=== PATIENT | female | born 1930 | race Caucasian/White ===

== ENCOUNTER → 2017-03-04 | Outpatient (CLI) | payer OTHER, MEDICARE | LOC: FIMAGING 13:36 | PROVIDERS: ATTEND Internal Medicine | DX: Z12.31 Encounter for screening mammogram for malignant neoplasm of breast (principal); Z80.3 Family history of malignant neoplasm of breast | CPT/HCPCS: G0202 ==

== ENCOUNTER → 2017-03-29 | Outpatient (CLI) | payer OTHER, MEDICARE | LOC: FIMAGING 15:17 | PROVIDERS: ATTEND Internal Medicine | DX: R91.1 Solitary pulmonary nodule (principal); K44.9 Diaphragmatic hernia without obstruction or gangrene; I70.0 Atherosclerosis of aorta ==

== ENCOUNTER 2017-11-16 14:23 | Inpatient (IN) | payer OTHER, MEDICAID ==
[2017-11-16] MEDS ORDERED: FAMOTIDINE 20 MG/NACL 50 ML IV ONE (14:56)
[2017-11-16] MEDS ORDERED: ONDANSETRON 4 MG/2 ML VIAL IVP ONE (14:56)
[2017-11-16] MEDS ORDERED: NS 1,000 ML IV ONE (14:56)
--- NOTE | 2017-11-16 15:01 | EDPHY ---
H & P Stated Complaint: black stool/diarrhea Time Seen by Provider: 11/16/17 14:45 HPI/ROS: CHIEF COMPLAINT: GI bleed HISTORY OF PRESENT ILLNESS: The patient is an 87-year-old female with a history of peptic ulcer disease, lupus and coronary artery disease a currently on prednisone as well as Plavix who states that today she developed black tarry diarrhea. She has had 6 episodes. She feels slightly lightheaded and weak when she stands up. She denies pain or shortness of breath. Symptoms began this morning. No fever. No abdominal pain. No vomiting or nausea. REVIEW OF SYSTEMS: Constitutional: denies: chills, fever, recent illness, recent injury EENTM: denies: blurred vision, double vision, nose congestion Respiratory: denies: cough, shortness of breath Cardiac: denies: chest pain, irregular heart rate, lightheadedness, palpitations Gastrointestinal/Abdominal: See HPI Genitourinary: denies: dysuria, frequency, hematuria, pain Musculoskeletal: denies: joint pain, muscle pain Skin: denies: lesions, rash, jaundice, bruising Neurological: denies: headache, numbness, paresthesia, tingling, dizziness, weakness Hematologic/Lymphatic: denies: blood clots, easy bleeding, easy bruising Immunologic/allergic: denies: HIV/AIDS, transplant EXAM: GENERAL: Well-appearing, well-nourished and in no acute distress. HEAD: Atraumatic, normocephalic. EYES: Pupils equal round and reactive to light, extraocular movements intact, sclera anicteric, conjunctiva are normal. ENT: TMs normal, nares patent, oropharynx clear without exudates. Moist mucous membranes. NECK: Normal range of motion, supple without lymphadenopathy or JVD. LUNGS: Breath sounds clear to auscultation bilaterally and equal. No wheezes rales or rhonchi. HEART: Regular rate and rhythm without murmurs, rubs or gallops. ABDOMEN: Soft, nontender, normoactive bowel sounds. No guarding, no rebound. No masses appreciated. : External hemorrhoids, not bleeding, no stool in the rectal vault BACK: No CVA tenderness, no spinal tenderness, step-offs or deformities EXTREMITIES: Normal range of motion, no pitting or edema. No clubbing or cyanosis. NEUROLOGICAL: Cranial nerves II through XII grossly intact. Normal speech, normal gait. 5/5 strength, normal movement in all extremities, normal sensation PSYCH: Normal mood, normal affect. SKIN: Warm, dry, normal turgor, no visible rashes or lesions. Source: Patient Exam Limitations: No limitations - Personal History Current Tetanus/Diphtheria Vaccine: Yes - Medical/Surgical History Hx Asthma: Yes Hx Chronic Respiratory Disease: No Hx Diabetes: No Hx Cardiac Disease: Yes Hx Renal Disease: No Hx Cirrhosis: No Hx Alcoholism: No Hx HIV/AIDS: No Hx Splenectomy or Spleen Trauma: No Other PMH: medical Lupus, HTN, Mild Stroke (L sided wkns), Parathyroid lump, Pneumonia, Osteoporosis, Periphpral Neuripathy , Asthma Arthritis Celiac Disease , cataracts. psh- Partial Hysterectomy, Bladder, Heart Catherization, - Social History Smoking Status: Never smoked Constitutional: Initial Vital Signs Temperature (C) 36.9 C 11/16/17 14:32 Heart Rate 81 11/16/17 14:32 Respiratory Rate 19 11/16/17 14:32 Blood Pressure 156/90 H 11/16/17 14:32 O2 Sat (%) 94 11/16/17 14:32 O2 Delivery Mode Room Air Allergies/Adverse Reactions: aspirin Allergy (Severe, Verified 07/24/14 00:57) Anaphylaxis gabapentin Allergy (Severe, Unverified 11/16/17 17:53) facial + peripheral edema + swollen throat Penicillins Allergy (Severe, Verified 07/24/14 00:57) Anaphylaxis NSAIDS (Non-Steroidal Anti-Inflamma Allergy (Intermediate, Verified 11/16/17 17: 51) Abdominal Pain pregabalin [From Lyrica] Allergy (Intermediate, Unverified 11/16/17 17:53) edema furosemide [From Lasix] Allergy (Verified 11/16/17 17:52) Home Medications: Medication Instructions Recorded ALPRAZolam [Xanax 0.5 MG (*)] 0.5 mg PO BID@07/23/14 Clopidogrel Bisulfate [Plavix (*)] 75 mg PO DAILY@172907/23/14 Montelukast Sodium [Singulair 10 10 mg PO DAILY@1800 07/23/14 mg (*)] Tears/Hypromellose [Natural 1 - 2 drops EACHEYE QID PRN 07/23/14 Balance] traMADol [Ultram 50 mg (*)] 50 mg PO DAILY@1400 07/23/14 traMADol [Ultram 50 mg (*)] 100 mg PO BID 07/23/14 Loperamide HCl [Imodium 2 mg (*)] 8 mg PO DAILY 11/04/15 Multivitamins [Multivitamin (*)] 1 each PO DAILY 11/04/15 Temazepam [Restoril] 30 mg PO HS 11/04/15 predniSONE 5 mg PO DAILY 11/04/15 Acetaminophen [Tylenol ES 500 mg 1,000 mg PO TID 11/16/17 (*)] Calcium Carbonate [Calcium] 500 mg PO DAILY 11/16/17 Cholecalciferol Vit D3 [Vitamin D3 1,000 units PO DAILY 11/16/17 (*)] Potassium Chloride [Klor-Con 10] 10 meq PO TID 11/16/17 Ranitidine HCl [Zantac] 150 mg PO BID 11/16/17 Spironolactone [Aldactone 25 MG 25 mg PO BID@09,1730 11/16/17 (*)] Medical Decision Making ED Course/Re-evaluation: Patient has not been able to provide a stool sample. The rectal exam I performed had an empty vault and is Hemoccult negative. Her H&H is stable. She is however weak and lightheaded and difficult to assist. I suspect that she does have a degree of blood loss. I will paged the hospitalist for admission. She has white cells in her urine but denies dysuria or frequency. She states that she does have some urinary hesitancy but that is normal for her. I will culture her urine. 4:10 p.m. I discussed the case with Dr. Rankin who will admit. Differential Diagnosis: Partial list of the Differential diagnosis considered include but were not limited to; GI bleed, peptic ulcer disease, anemia, dehydration, urinary tract infection and although unlikely based on the history and physical exam, I also considered CVA, sepsis. - Data Points Laboratory Results: Laboratory Results 11/16/17 14:58 11/16/17 14:58 11/16/17 11/16/17 11/16/17 15:20 14:58 14:58 WBC RBC Hgb Hct MCV MCH MCHC RDW Plt Count MPV Neut % (Auto) Lymph % (Auto) [place] % (Auto) Eos % (Auto) Baso % (Auto) Nucleat RBC Rel Count Absolute Neuts (auto) Absolute Lymphs (auto) Absolute Monos (auto) Absolute Eos (auto) Absolute Basos (auto) Absolute Nucleated RBC Immature Gran % Immature Gran # PT INR APTT Sodium 144 mEq/L mEq/L (135-145) Potassium 4.9 mEq/L mEq/L (3.5-5.2) Chloride 103 mEq/L mEq/L (97-110) Carbon Dioxide 25 mEq/l mEq/l (22-31) Anion Gap 16 mEq/L mEq/L (8-16) BUN 14 mg/dL mg/dL (7-23) Creatinine 0.9 mg/dL mg/dL (0.6-1.0) Estimated GFR 59 Glucose 134 mg/dL H mg/dL (70-100) Calcium 10.5 mg/dL H mg/dL (8.5-10.4) Total Bilirubin 0.5 mg/dL mg/dL (0.1-1.4) Conjugated Bilirubin 0.4 mg/dL mg/dL (0.0-0.5) Unconjugated Bilirubin 0.1 mg/dL mg/dL (0.0-1.1) AST 39 IU/L IU/L (14-46) ALT 31 IU/L IU/L (9-52) Alkaline Phosphatase 60 IU/L IU/L (38-126) Total Protein 7.1 g/dL g/dL (6.3-8.2) Albumin 4.3 g/dL g/dL (3.5-5.0) Lipase 68 IU/L IU/L (23-300) Urine Color PALE YELLOW Urine Appearance CLEAR Urine pH 8.0 H (5.0-7.5) Ur Specific [place] 1.005 (1.002-1.030) Urine Protein NEGATIVE (NEGATIVE) Urine Ketones NEGATIVE (NEGATIVE) Urine Blood 1+ H (NEGATIVE) Urine Nitrate NEGATIVE (NEGATIVE) Urine Bilirubin NEGATIVE (NEGATIVE) Urine Urobilinogen NEGATIVE EU EU (0.2-1.0) Ur Leukocyte Esterase 2+ H (NEGATIVE) Urine RBC 1-3 /hpf /hpf (0-3) Urine WBC 5-10 /hpf H /hpf (0-3) Ur Epithelial Cells TRACE /lpf /lpf (NONE-1+) Urine Bacteria TRACE /hpf H /hpf (NONE SEEN) Urine Mucus TRACE /lpf /lpf (NONE-1+) Urine Glucose NEGATIVE (NEGATIVE) Stool Occult Bld Scrn NEGATIVE (NEGATIVE) 11/16/17 11/16/17 14:58 14:58 WBC 9.18 10^3/uL 10^3/uL (3.80-9.50) RBC 4.74 10^6/uL 10^6/uL (4.18-5.33) Hgb 14.7 g/dL g/dL (12.6-16.3) Hct 45.5 % % (38.0-47.0) MCV 96.0 fL fL (81.5-99.8) MCH 31.0 pg pg (27.9-34.1) MCHC 32.3 g/dL L g/dL (32.4-36.7) RDW 13.0 % % (11.5-15.2) Plt Count 163 10^3/uL 10^3/uL (150-400) MPV 11.3 fL fL (8.7-11.7) Neut % (Auto) 82.4 % H % (39.3-74.2) Lymph % (Auto) 11.1 % L % (15.0-45.0) [place] % (Auto) 5.6 % % (4.5-13.0) Eos % (Auto) 0.3 % L % (0.6-7.6) Baso % (Auto) 0.4 % % (0.3-1.7) Nucleat RBC Rel Count 0.0 % % (0.0-0.2) Absolute Neuts (auto) 7.56 10^3/uL H 10^3/uL (1.70-6.50) Absolute Lymphs (auto) 1.02 10^3/uL 10^3/uL (1.00-3.00) Absolute Monos (auto) 0.51 10^3/uL 10^3/uL (0.30-0.80) Absolute Eos (auto) 0.03 10^3/uL 10^3/uL (0.03-0.40) Absolute Basos (auto) 0.04 10^3/uL 10^3/uL (0.02-0.10) Absolute Nucleated RBC 0.00 10^3/uL 10^3/uL (0-0.01) Immature Gran % 0.2 % % (0.0-1.1) Immature Gran # 0.02 10^3/uL 10^3/uL (0.00-0.10) PT 12.9 SEC SEC (12.0-15.0) INR 0.95 (0.83-1.16) APTT 24.1 SEC SEC (23.0-38.0) Sodium Potassium Chloride Carbon Dioxide Anion Gap BUN Creatinine Estimated GFR Glucose Calcium Total Bilirubin Conjugated Bilirubin Unconjugated Bilirubin AST ALT Alkaline Phosphatase Total Protein Albumin Lipase Urine Color Urine Appearance Urine pH Ur Specific [place] Urine Protein Urine Ketones Urine Blood Urine Nitrate Urine Bilirubin Urine Urobilinogen Ur Leukocyte Esterase Urine RBC Urine WBC Ur Epithelial Cells Urine Bacteria Urine Mucus Urine Glucose Stool Occult Bld Scrn Medications Given: Acetaminophen (Tylenol) 1,000 mg PO TID MARK Stop: 05/15/18 21:59 Last Admin: 11/16/17 20:18 Dose: 1,000 mg Tramadol HCl (Ultram) 100 mg PO BID MARK Stop: 05/15/18 20:59 Last Admin: 11/16/17 20:15 Dose: 100 mg Discontinued Medications Famotidine (Pepcid) 20 mg PO BID MARK Stop: 05/15/18 20:59 Last Admin: 11/16/17 20:16 Dose: 20 mg Sodium Chloride (Ns) 1,000 mls @ 0 mls/hr IV EDNOW ONE; Wide Open PRN Reason: Protocol Stop: 11/16/17 14:57 Last Admin: 11/16/17 15:19 Dose: 1,000 mls Famotidine/Sodium Chloride (Pepcid 20 Mg (Premix)) 50 mls @ 200 mls/hr IV EDNOW ONE Stop: 11/16/17 15:10 Last Admin: 11/16/17 15:33 Dose: 50 mls Ondansetron HCl (Zofran) 4 mg IVP EDNOW ONE Stop: 11/16/17 14:57 Last Admin: 11/16/17 15:34 Dose: 4 mg Departure - Departure Disposition: [facility] Acute Clinical Impression: GI bleeding Qualifiers: GI bleed type/associated pathology: unspecified gastrointestinal hemorrhage type Qualified Code(s): K92.2 - Gastrointestinal hemorrhage, unspecified Condition: Fair
[2017-11-16 15:07] LABS: PLATELET COUNT 163 10^3/uL (150-400)
[2017-11-16 15:15] LABS: INR 0.95 (0.83-1.16); PROTIME(PATIENT) 12.9 SEC (12.0-15.0)
[2017-11-16] MEDS ORDERED: ACETAMINOPHEN 325 MG TAB PO PRN (16:51)
[2017-11-16] MEDS ORDERED: ONDANSETRON 4 MG/2 ML VIAL IVP PRN (16:51)
[2017-11-16 18:49] LABS: PLATELET COUNT 219 10^3/uL (150-400)
[2017-11-16] MEDS: traMADol 50 MG TAB PO SCH (20:15)
[2017-11-16] MEDS: ACETAMINOPHEN 500 MG TAB PO SCH (20:18)
[2017-11-16] MEDS ORDERED: FAMOTIDINE 20 MG TAB PO SCH (21:00)
[2017-11-16] MEDS ORDERED: NON-FORMULARY NEW DRUG (Ranitidine Hcl [Zantac] 150 MG) PO SCH (21:00)
[2017-11-16] MEDS ORDERED: TEMAZEPAM 15 MG CAP PO PRN (22:23)
[2017-11-17] MEDS: PANTOPRAZOLE SODIUM 40 MG VIAL IVP SCH ×2 (00:10→10:14)
[2017-11-17 00:41] LABS: PLATELET COUNT 179 10^3/uL (150-400)
--- NOTE | 2017-11-17 01:30 | PDGENHP ---
History and Physical - Chief Complaint Melena - History of Present Illness Source-patient is able to provide history and appears reliable. Her daughter is at bedside supplements some details. Case was discussed with accepting hospitalist. EMR was reviewed. HPI - this is a pleasant 87-year-old female with multiple chronic medical problems including SLE on plaquenil/steroids, CAD, CVA with left sided weakness , venous insufficiency, Barrest esophagus, IBS, celiac disease, peripheral neuropathy who presents to the ED today with complaints of multiple episodes 6 or more black tarry stools starting yesterday. Patient denies any abdominal pain, bloating or distention. Patient denies any chest pain or shortness of breath. She denies any nausea or vomiting. Patient has had decreased appetite until this evening when she tolerated oral intake. Patient without any previous history of GI bleeding by her report. She is currently on Plavix for history of CVA and CAD. Patient did endorse some generalized weakness and lightheadedness when she stood up to go to the bathroom. Patient reports at baseline she generally has difficulties with mobility but was increasingly difficult running back and forth to the bathroom the last 24 hr. Patient's last bowel movement at home she reports that it had changed to brown colored and more formed. Patient has not produced any stool since her arrival to the hospital. In the ED, rectal exam was not revealing for any stool in the vault and attempt at SOB was negative. Patient vital signs and H&H were found to be stable. Patient admitted for increasing weakness and monitoring in setting of suspected upper GI bleeding. Further discussion with the patient and her daughter who is at bedside regarding evaluation of her possible upper GI bleeding revealed that patient would not want to undergo endoscopy unless emergent to save her life. She does report that her advanced directive is to be DNR/DNI. History Information - Allergies/Home Medication List Allergies/Adverse Reactions: aspirin Allergy (Severe, Verified 07/24/14 00:57) Anaphylaxis gabapentin Allergy (Severe, Unverified 11/16/17 17:53) facial + peripheral edema + swollen throat Penicillins Allergy (Severe, Verified 07/24/14 00:57) Anaphylaxis NSAIDS (Non-Steroidal Anti-Inflamma Allergy (Intermediate, Verified 11/16/17 17: 51) Abdominal Pain pregabalin [From Lyrica] Allergy (Intermediate, Unverified 11/16/17 17:53) edema furosemide [From Lasix] Allergy (Verified 11/16/17 17:52) Home Medications: ALPRAZolam [Xanax 0.5 MG (*)] 0.5 mg PO BID@0 07/23/14 [Last Taken 09:00] Clopidogrel Bisulfate [Plavix (*)] 75 mg PO DAILY@1730 07/23/14 [Last Taken ] Montelukast Sodium [Singulair 10 mg (*)] 10 mg PO DAILY@1800 07/23/14 [Last Taken 11/15/17] Tears/Hypromellose [Natural Balance] 1 - 2 drops EACHEYE QID PRN 07/23/14 [Last Taken Unknown] traMADol [Ultram 50 mg (*)] 50 mg PO DAILY@1400 07/23/14 [Last Taken 11/16/17] traMADol [Ultram 50 mg (*)] 100 mg PO BID 07/23/14 [Last Taken 11/16/17 09:00] Loperamide HCl [Imodium 2 mg (*)] 8 mg PO DAILY 11/04/15 [Last Taken 11/16/17] Multivitamins [Multivitamin (*)] 1 each PO DAILY 11/04/15 [Last Taken 11/16/17] Temazepam [Restoril] 30 mg PO HS 11/04/15 [Last Taken 11/15/17] predniSONE 5 mg PO DAILY 11/04/15 [Last Taken 11/16/17] Acetaminophen [Tylenol ES 500 mg (*)] 1,000 mg PO TID 11/16/17 [Last Taken 11/16 13:00] Calcium Carbonate [Calcium] 500 mg PO DAILY 11/16/17 [Last Taken 11/16/17] Cholecalciferol Vit D3 [Vitamin D3 (*)] 1,000 units PO DAILY 11/16/17 [Last Taken 11/16/17] Potassium Chloride [Klor-Con 10] 10 meq PO TID 11/16/17 [Last Taken 11/16/17 12: 00] Ranitidine HCl [Zantac] 150 mg PO BID 11/16/17 [Last Taken 11/16/17 09:00] Spironolactone [Aldactone 25 MG (*)] 25 mg PO BID@11/16/17 [Last Taken 11/16/17 09:00] I have personally reviewed and updated: family history, medical history, social history, surgical history - Past Medical History Additional medical history: SLE, PUD, CAD on Plavix, CVA with left-sided residual weakness, HTN, asthma, nocturnal hypoxia on O2 supplementation at HS, Ruiz's esophagus, previous history of AFib noted in chart currently sinus, venous insufficiency bilaterally lower extremities. Essential tremor. Pneumonia remotely. Osteoporosis, osteoarthritis, peripheral neuropathy, celiac disease, IBS diarrhea predominant - Surgical History Additional surgical history: Hysterectomy, bladder lift, cardiac cath, bilateral cataract extraction with lens replacement, parathyroid nodule resected. - Family History Additional family history: Mother and maternal aunts x2 with history of breast cancer. Father with SLE. Brother with history of colon cancer. - Social History Smoking Status: Never smoked Alcohol Use: None Drug Use: None Additional social history: Patient resides at [facility]. Patient has excellent support from her children. Cor-DNR/DNI Review of Systems Review of Systems: ROS: 10pt was reviewed & negative except for what was stated in HPI & below Constitutional: Denies: chills, fever, weight loss EENMT: Denies: blurred vision, nose congestion, sore throat Cardiac: Reports: no symptoms, edema (Chronic bilateral lower extremity edema. Patient reports is stable.), lightheadedness. Denies: chest pain, palpitations , syncope Respiratory: Denies: cough, shortness of breath Gastrointestinal: Reports: black stools, diarrhea. Denies: vomitting, nausea Genitourinary: Reports: frequency (Ongoing for several weeks.). Denies: burning , dysuria, hematuria, incontinence Muscolosketal: Denies: joint pain, muscle pain Skin: Reports: no symptoms. Denies: rash Neurological: Reports: headache (Occasional), numbness (Lower extremities.), tremors, weakness (Lower extremity weakness chronically.), other (Chronic lower extremity neuropathy bilaterally.) Hematologic/Lymphatic: Reports: easy bruising. Denies: anemia, blood clots Physical Exam Physical Exam: Selected Entries 11/16/17 14:32 Blood Pressure Automatic Method Heart Rate 81 Respiratory 19 Rate O2 Sat (%) 94 Temperature (C) 36.9 C Blood Pressure 156/90 H Mean Arterial 112 H Pressure (MAP) O2 Delivery Room Air Mode Temperature Oral Source Temp Pulse Resp BP Pulse Ox 36.7 C 58 L 12 174/88 H 98 11/16/17 23:16 11/16/17 23:16 11/16/17 23:16 11/16/17 23:16 11/16/17 23:16 O2 (L/minute) 2 Constitutional: no apparent distress, not in pain, chronically ill appearing, other (NAD. Pleasant frail elderly obese female is lying quietly in bed. Daughter is at bedside.) Eyes: PERRL, anicteric sclera, EOMI, other (Bilateral lens reflex appreciated ) Ears, Nose, Mouth, Throat: moist mucous membranes, other (No nasal discharge), No poor dentition Cardiovascular: regular rate and rhythym, systolic murmur (2/6), edema ( Bilateral lower extremity 1 to 2+.) Peripheral Pulses: 1+: dorsalis-pedis (R) (Limited secondary to edema and complaint of pain from neuropathy), dorsalis-pedis (L) (Limited secondary to edema and complaint of pain from neuropathy) Respiratory: no respiratory distress, no rales or rhonchi, clear to auscultation , reduced air movement (bibasilar) Gastrointestinal: normoactive bowel sounds, soft, non-tender abdomen, no palpable masses, No tenderness, No pond's sign (0), No guarding, No distension Genitourinary: no bladder tenderness, No fierro in urethra Skin: warm, normal color, no rashes or abrasions Musculoskeletal: generalized weakness, other (Patient is able to move all extremities while lying in bed. Decreased.), No full muscle strength, No pain with ROM Neurologic: AAOx3, sensation intact bilaterally (Slightly decreased bilateral lower extremity), CN II-XII Intact, No facial droop Psychiatric: interacting appropriately, not anxious, not encephalopathic (0) Lab Data & Imaging Review 11/17/17 00:30 11/17/17 03:20 WBC 8.45 10^3/uL (3.80-9.50) 11/17/17 00:30 RBC 4.24 10^6/uL (4.18-5.33) 11/17/17 00:30 Hgb 13.3 g/dL (12.6-16.3) 11/17/17 00:30 Hct 41.2 % (38.0-47.0) 11/17/17 00:30 MCV 97.2 fL (81.5-99.8) 11/17/17 00:30 MCH 31.4 pg (27.9-34.1) 11/17/17 00:30 MCHC 32.3 g/dL (32.4-36.7) L 11/17/17 00:30 RDW 13.1 % (11.5-15.2) 11/17/17 00:30 Plt Count 179 10^3/uL (150-400) 11/17/17 00:30 MPV 11.3 fL (8.7-11.7) 11/17/17 00:30 Neut % (Auto) 73.3 % (39.3-74.2) 11/17/17 00:30 Lymph % (Auto) 15.4 % (15.0-45.0) 11/17/17 00:30 [place] % (Auto) 9.8 % (4.5-13.0) 11/17/17 00:30 Eos % (Auto) 0.9 % (0.6-7.6) 11/17/17 00:30 Baso % (Auto) 0.4 % (0.3-1.7) 11/17/17 00:30 Nucleat RBC Rel Count 0.0 % (0.0-0.2) 11/17/17 00:30 Absolute Neuts (auto) 6.19 10^3/uL (1.70-6.50) 11/17/17 00:30 Absolute Lymphs (auto) 1.30 10^3/uL (1.00-3.00) 11/17/17 00:30 Absolute Monos (auto) 0.83 10^3/uL (0.30-0.80) H 11/17/17 00:30 Absolute Eos (auto) 0.08 10^3/uL (0.03-0.40) 11/17/17 00:30 Absolute Basos (auto) 0.03 10^3/uL (0.02-0.10) 11/17/17 00:30 Absolute Nucleated RBC 0.00 10^3/uL (0-0.01) 11/17/17 00:30 Immature Gran % 0.2 % (0.0-1.1) 11/17/17 00:30 Immature Gran # 0.02 10^3/uL (0.00-0.10) 11/17/17 00:30 PT 12.9 SEC (12.0-15.0) 11/16/17 14:58 INR 0.95 (0.83-1.16) 11/16/17 14:58 APTT 24.1 SEC (23.0-38.0) 11/16/17 14:58 Sodium 144 mEq/L (135-145) 11/16/17 14:58 Potassium 4.9 mEq/L (3.5-5.2) 11/16/17 14:58 Chloride 103 mEq/L (97-110) 11/16/17 14:58 Carbon Dioxide 25 mEq/l (22-31) 11/16/17 14:58 Anion Gap 16 mEq/L (8-16) 11/16/17 14:58 BUN 14 mg/dL (7-23) 11/16/17 14:58 Creatinine 0.9 mg/dL (0.6-1.0) 11/16/17 14:58 Estimated GFR 59 11/16/17 14:58 Glucose 134 mg/dL (70-100) H 11/16/17 14:58 Calcium 10.5 mg/dL (8.5-10.4) H 11/16/17 14:58 Total Bilirubin 0.5 mg/dL (0.1-1.4) 11/16/17 14:58 Conjugated Bilirubin 0.4 mg/dL (0.0-0.5) 11/16/17 14:58 Unconjugated Bilirubin 0.1 mg/dL (0.0-1.1) 11/16/17 14:58 AST 39 IU/L (14-46) 11/16/17 14:58 ALT 31 IU/L (9-52) 11/16/17 14:58 Alkaline Phosphatase 60 IU/L (38-126) 11/16/17 14:58 Total Protein 7.1 g/dL (6.3-8.2) 11/16/17 14:58 Albumin 4.3 g/dL (3.5-5.0) 11/16/17 14:58 Lipase 68 IU/L (23-300) 11/16/17 14:58 Urine Color PALE YELLOW 11/16/17 15:20 Urine Appearance CLEAR 11/16/17 15:20 Urine pH 8.0 (5.0-7.5) H 11/16/17 15:20 Ur Specific [place] 1.005 (1.002-1.030) 11/16/17 15:20 Urine Protein NEGATIVE (NEGATIVE) 11/16/17 15:20 Urine Ketones NEGATIVE (NEGATIVE) 11/16/17 15:20 Urine Blood 1+ (NEGATIVE) H 11/16/17 15:20 Urine Nitrate NEGATIVE (NEGATIVE) 11/16/17 15:20 Urine Bilirubin NEGATIVE (NEGATIVE) 11/16/17 15:20 Urine Urobilinogen NEGATIVE EU (0.2-1.0) 11/16/17 15:20 Ur Leukocyte Esterase 2+ (NEGATIVE) H 11/16/17 15:20 Urine RBC 1-3 /hpf (0-3) 11/16/17 15:20 Urine WBC 5-10 /hpf (0-3) H 11/16/17 15:20 Ur Epithelial Cells TRACE /lpf (NONE-1+) 11/16/17 15:20 Urine Bacteria TRACE /hpf (NONE SEEN) H 11/16/17 15:20 Urine Mucus TRACE /lpf (NONE-1+) 11/16/17 15:20 Urine Glucose NEGATIVE (NEGATIVE) 11/16/17 15:20 Stool Occult Bld Scrn NEGATIVE (NEGATIVE) 11/16/17 14:58 Assessment & Plan Assessment: Melena - patient without any additional episodes of melena since arrival to the hospital. He she actually reports that the last bowel movement she had was brown. She has not had any nausea vomiting hematemesis. No persistent abdominal pain. Patient did at 1 point report a little bit of right mid abdominal tenderness but was bleeding and upon re-evaluation was gone. Per discussion with the patient I reviewed options for management including monitoring leads for further episodes of melena and/or decline in her H&H versus consideration for EGD. Given her age and her chronic medical issues patient would like to continue with conservative management and avoid intervention. She would however be interested in considering EGD if patient's symptoms began to decline or became life threatening. Will plan to hold patient 's Plavix at this time. Reviewed risks benefits of continued antiplatelet therapy with her history of GI bleeding and risks of recurrent CVA. Lightheadedness - patient has not had any further episodes will evaluate orthostatic blood pressures. Patient's resting blood pressure is acceptable at this time. We will continue some gentle IV fluid hydration overnight. Accelerated hypertension-hydralazine will be made available p.r.n.. Hyperglycemia-this is nonfasting. Patient without previous history of diabetes. She is chronically on low-dose prednisone for her lupus. Will allow for some permissive hyperglycemia in this elderly lady. Hold off on use of insulin correction as patient will remain NPO at this time. Hypercalcemia-minimally elevated likely related to some dehydration. Patient will receive IV fluid hydration and repeat BMP in the morning Urinary frequency-patient denies any dysuria or hematuria. She has reported some increased frequency she does have a history of lateral left may represent some on overactive bladder. Her UA was not significantly impressive for UTI. In that it was not a catheterized specimen and so was likely some component of contamination. Previous review of patient's UA from May did show a small colony grew growth of MRSA and mixed ilana. Hold off on antibiotic therapy at this time urine culture is pending. Chronic medical problems SLE-resume patient's prednisone and Plaquenil when diet is advanced. CAD-holding of Plavix History CVA with lower extremity weakness - holding Plavix Chronic nocturnal hypoxia supplemental oxygen p.r.n. Asthma - nebulizer p.r.n. Benign essential hypertension - plan as above Venous insufficiency - patient without any open wounds. Celiac disease IBS Osteoarthritis History of atrial fibrillation - in normal sinus rhythm. Not on any rate control. FEN - IV fluids overnight. Electrolyte monitoring replacement p.r.n.. NPO at this time. PPX - SCDs. Holding anticoagulation in setting of complaints of melena Cor-patient is a DNR DNI. Disposition-patient admitted to inpatient status for close monitoring of her vital signs and H&H. Further evaluation to consider with GI if patient elects to proceed with EGD.
[2017-11-17 04:48] LABS: INR 1.08 (0.83-1.16); PROTIME(PATIENT) 14.2 SEC (12.0-15.0)
[2017-11-17 08:48] LABS: PLATELET COUNT 165 10^3/uL (150-400)
[2017-11-17] MEDS ORDERED: predniSONE 5 MG TAB PO SCH (09:00)
[2017-11-17] MEDS ORDERED: ALPRAZolam 0.5 MG TAB PO SCH (09:00)
[2017-11-17] MEDS ORDERED: ALPRAZolam 0.25 MG TAB PO SCH (09:00)
[2017-11-17] MEDS ORDERED: SPIRONOLACTONE 25 MG TAB PO SCH (09:00)
--- NOTE | 2017-11-17 09:17 | PDMN ---
Medical Necessity Medical necessity: est los>2mn for melena with 6 or more episodes of black tarry stools, lightheadedness, accelerated htn, hyperglycemia, hypercalcemia, and urinary frequency; admit for continued conservative management and monitoring before proceeding with GI intervention per pt. preference, IVF, IV PPI; multiple comorbid conditions include SLE on chronic steroid, CAD on Plavix , hx CVA, HTN, IBS and celiac; per order and H&P 11/16/17
--- NOTE | 2017-11-17 10:03 | HOSPPROG ---
Hospitalist Progress Note Assessment/Plan: 87 yo f w lupus, h/o cva admitted w melena melena: s/o UGIB has stopped bun normal hg unchanged no hematemesis hold off on endoscopy lupus: continue pred h/o cva:plavix on hold code: dnr dispo: feed and ambulate if does ok, reasonable to dc Subjective: 30' spent disucssing potential endoscopy Objective: Vital Signs Temp Pulse Resp BP Pulse Ox 36.9 C 73 14 145/67 H 97 11/17/17 07:54 11/17/17 07:54 11/17/17 07:54 11/17/17 07:54 11/17/17 07:54 Laboratory Results 11/17/17 08:43 11/17/17 03:20 11/16/17 11/17/17 11/18/17 05:59 05:59 05:59 Output Total 100 300 Balance -100 -300 PT 14.2 SEC (12.0-15.0) 11/17/17 03:20 INR 1.08 (0.83-1.16) 11/17/17 03:20 - Physical Exam Constitutional: no apparent distress, appears nourished Eyes: PERRL, anicteric sclera Ears, Nose, Mouth, Throat: moist mucous membranes, hearing normal Cardiovascular: regular rate and rhythym, no murmur, rub, or gallop, No tachycardia Respiratory: no respiratory distress, no rales or rhonchi Gastrointestinal: normoactive bowel sounds, No guarding, No rebound Genitourinary: no bladder fullness Skin: warm Musculoskeletal: full muscle strength Neurologic: AAOx3 ICD10 Worksheet Patient Problems: Problems Problem Status Onset GI bleeding Acute Cervical pain (neck) Acute Fall Acute Hypokalemia Acute MRSA (methicillin resistant Staphylococcus aureus) Acute ~06/16/17
[2017-11-17] MEDS ORDERED: NON-FORMULARY NEW DRUG (Tears/Hypromellose [Natural Balance] 0 DROPS) EACHEYE PRN (10:12)
[2017-11-17] MEDS: ACETAMINOPHEN 500 MG TAB PO SCH ×2 (10:13→15:41)
[2017-11-17] MEDS: traMADol 50 MG TAB PO SCH (10:13)
[2017-11-17] MEDS ORDERED: CHOLECALCIFEROL VIT D3 1,000 UNITS TAB PO SCH (10:15)
[2017-11-17] MEDS ORDERED: LOPERAMIDE HCL 2 MG CAP PO SCH (10:15)
[2017-11-17] MEDS ORDERED: MULTIVITAMINS 1 EACH TAB PO SCH (10:15)
[2017-11-17] MEDS ORDERED: CALCIUM CARBONATE 500 MG PO SCH (10:15)
[2017-11-17] MEDS ORDERED: TEARS/DEXTRAN 70/HYPROMELLOSE 15 ML OPHT.BTL EACHEYE PRN (10:16)
[2017-11-17] MEDS ORDERED: CALCIUM CARBONATE 500 MG TAB PO SCH (10:30)
[2017-11-17] MEDS ORDERED: traMADol 50 MG TAB PO SCH (14:00)
--- NOTE | 2017-11-17 14:59 | ASMTCASEMG ---
Living Arrangements What is your living Answers: Alone arrangement? Who do you live with? Type Of Residence What kind of residence do Answers: [facility]? Type of Residence Facility Name Notes: [facility] Discharge Plan Comments Coordination Status Comments Notes: Pts case discussed in morning rounds. Pt is a 87 y/o female admitted for a upper GI bleed. Therapies have been ordered. PT and OT are recommending HC at this time. Pt is agreeable to having HC through [facility]. [facility] is able to accept. Daughter would like to be the salesperson fashion accessories for [facility] to call. provided this info to [facility]. provided ERIC Morgan w/ phone number to give report. CM available for changes. Plan: [facility], [place], RN Date Signed: 11/17/2017 02:59 PM Electronically Signed By:ANNE MARIE Thibodeaux
--- NOTE | 2017-11-17 15:00 | ASMTLACE ---
LACE Length of stay for Answers: 1 day current admission Acuity / Level of Answers: Yes Care: Did the patient have an inpatient admission? Comorbidities - select Answers: Cerebrovascular disease all that apply (CVA, TIA, aneurysms, vasc ular dementia) Coronary Atery Disease # of Emergency department Answers: 0 visits in the last 6 months Score: 7 Date Signed: 11/17/2017 02:59 PM Electronically Signed By:ANNE MARIE Thibodeaux
--- NOTE | 2017-11-17 15:40 | GDS ---
[f rep st] DISCHARGE SUMMARY DISCHARGE DIAGNOSES: 1. Suspected upper gastrointestinal bleed without blood-loss anemia. 2. Lupus, on prednisone 5. 3. History of transient ischemic attack, history of cerebrovascular accident. HOSPITAL COURSE: Please see admission history and physical by Dr. Theresa Stern. The patient present ed with a couple days of melena. She had a normal BUN. Her hemoglobin was 14 and it remained above 14 in serial checking. She had no further melena. Her last stool prior to presentation was brown. Her Plavix was held. She was started on a b.i.d. PPI. There was significant discussion about the ri sks, benefits of endoscopy which she ultimately declined given the absence of significant blood loss. She is discharged home. She is going to hold her Plavix for a couple of days. I have substituted b.i.d. Protonix x1 month for her ranitidine, and when she is done with that 1-month therapy, she can resume her ranitidine. /[id number]/MODL
--- NOTE | 2017-11-17 15:56 | PDIAF ---
- Diagnosis Diagnosis: UGIB Code Status: Do Not Resuscitate - Medication Management Discharge Medications: Medications to Continue on Transfer ALPRAZolam [Xanax 0.5 MG (*)] 0.5 mg PO BID@09,1730 07/23/14 [Last Taken 09:00] Clopidogrel Bisulfate [Plavix (*)] 75 mg PO DAILY@1730 07/23/14 [Last Taken ] Montelukast Sodium [Singulair 10 mg (*)] 10 mg PO DAILY@1800 07/23/14 [Last Taken 11/15/17] Tears/Hypromellose [Natural Balance] 1 - 2 drops EACHEYE QID PRN 07/23/14 [Last Taken Unknown] traMADol [Ultram 50 mg (*)] 50 mg PO DAILY@1400 07/23/14 [Last Taken 11/16/17] traMADol [Ultram 50 mg (*)] 100 mg PO BID 07/23/14 [Last Taken 11/16/17 09:00] Loperamide HCl [Imodium 2 mg (*)] 8 mg PO DAILY 11/04/15 [Last Taken 11/16/17] Multivitamins [Multivitamin (*)] 1 each PO DAILY 11/04/15 [Last Taken 11/16/17] Temazepam [Restoril] 30 mg PO HS 11/04/15 [Last Taken 11/15/17] predniSONE 5 mg PO DAILY 11/04/15 [Last Taken 11/16/17] Acetaminophen [Tylenol ES 500 mg (*)] 1,000 mg PO TID 11/16/17 [Last Taken 11/16 13:00] Calcium Carbonate [Calcium] 500 mg PO DAILY 11/16/17 [Last Taken 11/16/17] Cholecalciferol Vit D3 [Vitamin D3 (*)] 1,000 units PO DAILY 11/16/17 [Last Taken 11/16/17] Potassium Chloride [Klor-Con 10] 10 meq PO TID 11/16/17 [Last Taken 11/16/17 12: 00] Spironolactone [Aldactone 25 MG (*)] 25 mg PO BID@,1730 11/16/17 [Last Taken 11/16/17 09:00] Pantoprazole Sodium [Protonix 40mg (*)] 40 mg PO BID #60 tab 11/17/17 [Last Taken Unknown] Discharge Medications: Refer to the Discharge Home Medication list for PRN reason. - Orders Services needed: Registered Nurse, Physical Therapy, Occupational Therapy - Follow Up Care Current Providers and Referrals: Clint Auguste MD [Primary Care Provider] - As per Instructions
[2017-11-17] MEDS ORDERED: POTASSIUM CL 10 MEQ TAB PO SCH (16:00)
[2017-11-17] MEDS ORDERED: NON-FORMULARY NEW DRUG (Potassium Chloride [Klor-Con 10] 10 MEQ) PO SCH (16:00)
[2017-11-17 16:18] VITALS: PULSE 82; RESP 16; TEMP 98.2; O2SAT 95
[2017-11-17 16:42] VITALS: BP 150/80
[2017-11-17] MEDS ORDERED: MONTELUKAST SODIUM 10 MG TAB PO SCH (18:00)
[2017-11-17] MEDS ORDERED: PANTOPRAZOLE SODIUM 40 MG TAB PO SCH (21:00)
== END 2017-11-17 17:29 | disposition home health service (06) | DRG 378 ==
LOC: OBSVTOIN 16:52 → F2W 18:09
PROVIDERS: ADMIT Internal Medicine; ATTEND Internal Medicine
DX: K92.2 Gastrointestinal hemorrhage, unspecified (principal); D62 Acute posthemorrhagic anemia; M32.9 Systemic lupus erythematosus, unspecified; I10 Essential (primary) hypertension; Z86.73 Personal history of transient ischemic attack (TIA), and cerebral infarction without residual deficits; Z66 Do not resuscitate
CPT/HCPCS: 96365; 97161-GP; 97165-GO; 97535-GO; G8978-GP-CJ; G8979-GP-CI; G8980-GP-CJ; G8987-GO-CI; G8988-GO-CI; J2405; J7512

== ENCOUNTER 2018-03-04 08:02 | Inpatient (IN) | payer OTHER, MEDICAID ==
--- NOTE | 2018-03-04 08:25 | CPEKG ---
Heart Rate: 107 RR Interval: 561 P-R Interval: 164 QRSD Interval: 132 QT Interval: 420 QTC Interval: 561 P [place]: 0 QRS [place]: 51 T Wave [place]: -9 EKG Severity - ABNORMAL ECG - EKG Impression: significant artifact, ?junctional rhythm EKG Impression: RIGHT BUNDLE BRANCH BLOCK Electronically Signed By: Naatlie Saenz 04-Mar-2018 15:21:27
[2018-03-04 08:59] LABS: PLATELET COUNT 165 10^3/uL (150-400)
--- NOTE | 2018-03-04 09:52 | EDPHY ---
H & P Stated Complaint: syncopal Time Seen by Provider: 03/04/18 08:09 HPI/ROS: CHIEF COMPLAINT: Syncope HISTORY OF PRESENT ILLNESS: 87-year-old female presents after syncopal episode. She was sitting on the toilet and the next thing she recalls is being on the floor next to the toilet. She does not recall being dizzy and was not short of breath. She has mild left-sided hip pain after the syncopal episode. No prior history of syncope. No recent illness. REVIEW OF SYSTEMS: complete 10 point ROS negative except at noted in the HPI - Medical/Surgical History Hx Asthma: Yes Hx Chronic Respiratory Disease: No Hx Diabetes: No Hx Cardiac Disease: Yes Hx Renal Disease: No Hx Cirrhosis: No Hx Alcoholism: No Hx HIV/AIDS: No Hx Splenectomy or Spleen Trauma: No Other PMH: medical Lupus, HTN, Mild Stroke (L sided wkns), Parathyroid lump, Pneumonia, Osteoporosis, Periphpral Neuripathy , Asthma Arthritis Celiac Disease , cataracts. psh- Partial Hysterectomy, Bladder, Heart Catherization, - Social History Smoking Status: Never smoked - Physical Exam Exam: General Appearance: Alert, pleasant Eyes: Pupils equal and round, no conjunctival pallor or injection ENT, Mouth: Mucous membranes moist Neck: Normal inspection Respiratory: Lungs are clear to auscultation Cardiovascular: Regular rate and rhythm Gastrointestinal: Abdomen is soft and nontender Neurological: A&O, left-sided weakness Skin: Warm and dry, no rash Extremities: Left hip-normal inspection, mild tenderness laterally, range of motion without pain Psychiatric: Mood and affect normal Constitutional: Initial Vital Signs Temperature (C) 37.0 C 03/04/18 08:08 Heart Rate 63 03/04/18 08:08 Respiratory Rate 2 L 03/04/18 08:08 Blood Pressure 171/83 H 03/04/18 08:08 O2 Sat (%) 99 03/04/18 08:08 O2 Delivery Mode Nasal Cannula O2 (L/minute) 3 Allergies/Adverse Reactions: aspirin Allergy (Severe, Verified 07/24/14 00:57) Anaphylaxis gabapentin Allergy (Severe, Verified 03/04/18 11:46) facial + peripheral edema + swollen throat Penicillins Allergy (Severe, Verified 07/24/14 00:57) Anaphylaxis furosemide Allergy (Unknown, Verified 03/04/18 11:46) NSAIDS (Non-Steroidal Anti-Inflamma [NSAIDS (Non-Steroidal Anti-Inflammatory Drug)] Allergy (Unknown, Verified 03/04/18 11:46) Abdominal Pain pregabalin Allergy (Unknown, Verified 03/04/18 11:46) edema Home Medications: Medication Instructions Recorded ALPRAZolam [Xanax 0.5 MG (*)] 0.5 mg PO BID@,172907/23/14 Clopidogrel Bisulfate [Plavix (*)] 75 mg PO DAILY@17307/23/14 Montelukast Sodium [Singulair 10 10 mg PO DAILY@1800 07/23/14 mg (*)] Tears/Hypromellose [Natural 1 - 2 drops EACHEYE QID PRN 07/23/14 Balance] traMADol [Ultram 50 mg (*)] 50 mg PO DAILY@12 07/23/14 traMADol [Ultram 50 mg (*)] 100 mg PO BID@1730,0 07/23/14 Loperamide HCl [Imodium 2 mg (*)] 8 mg PO DAILY 11/04/15 Multivitamins [Multivitamin (*)] 1 each PO DAILY 11/04/15 Temazepam [Restoril] 30 mg PO HS 11/04/15 predniSONE 5 mg PO DAILY 11/04/15 Acetaminophen [Tylenol ES 500 mg 1,000 mg PO DAILY PRN 11/16/17 (*)] Calcium Carbonate [Calcium] 500 mg PO DAILY 11/16/17 Cholecalciferol Vit D3 [Vitamin D3 1,000 units PO DAILY 11/16/17 (*)] Potassium Chloride [Klor-Con 10] 10 meq PO TID 11/16/17 Spironolactone [Aldactone 25 MG 25 mg PO BID@11/16/17 (*)] Pantoprazole Sodium [Protonix 40mg 40 mg PO BID #60 tab 11/17/17 (*)] Topiramate [Topamax] 100 mg PO HS 03/04/18 Medical Decision Making - Diagnostics EKG Interpretation: EKG interpreted by me reveals significant artifact, probable sinus tachycardia, right bundle branch block ED Course/Re-evaluation: This patient presents after a syncopal episode without prodromal symptoms. There is no evidence of significant injury on exam. Initial EKG has significant artifact. Repeat EKG reveals a junctional rhythm. I reviewed her prior EKGs and she is usually in NSR. The syncopal episode may have been secondary to dysrhythmia. Electrolytes and hemoglobin are normal. She will be admitted to the hospitalist service for further evaluation. She is asymptomatic throughout her emergency department stay. Differential Diagnosis: Differential diagnosis includes though is not limited to cardiac dysrhythmia, CVA, TIA, GI bleed, sepsis, hypoglycemia. - Data Points Laboratory Results: Laboratory Results 03/04/18 08:44 03/04/18 08:44 03/04/18 03/04/18 03/04/18 08:47 08:44 08:44 WBC RBC Hgb Hct MCV MCH MCHC RDW Plt Count MPV Neut % (Auto) Lymph % (Auto) [place] % (Auto) Eos % (Auto) Baso % (Auto) Nucleat RBC Rel Count Absolute Neuts (auto) Absolute Lymphs (auto) Absolute Monos (auto) Absolute Eos (auto) Absolute Basos (auto) Absolute Nucleated RBC Immature Gran % Immature Gran # Sodium 143 mEq/L mEq/L (135-145) Potassium 3.8 mEq/L mEq/L (3.3-5.0) Chloride 105 mEq/L mEq/L (97-110) Carbon Dioxide 31 mEq/l mEq/l (22-31) Anion Gap 7 mEq/L L mEq/L (8-16) BUN 14 mg/dL mg/dL (7-23) Creatinine 1.1 mg/dL H mg/dL (0.6-1.0) Estimated GFR 47 Glucose 81 mg/dL mg/dL (70-100) Calcium 8.9 mg/dL mg/dL (8.5-10.4) POC Troponin I 0.02 ng/mL ng/mL (0.00-0.08) NT-Pro-B Natriuret Pep 1090 pg/mL H pg/mL (0-450) 03/04/18 08:44 WBC 6.61 10^3/uL 10^3/uL (3.80-9.50) RBC 4.08 10^6/uL L 10^6/uL (4.18-5.33) Hgb 12.4 g/dL L g/dL (12.6-16.3) Hct 40.0 % % (38.0-47.0) MCV 98.0 fL fL (81.5-99.8) MCH 30.4 pg pg (27.9-34.1) MCHC 31.0 g/dL L g/dL (32.4-36.7) RDW 13.8 % % (11.5-15.2) Plt Count 165 10^3/uL 10^3/uL (150-400) MPV 11.8 fL H fL (8.7-11.7) Neut % (Auto) 57.4 % % (39.3-74.2) Lymph % (Auto) 28.3 % % (15.0-45.0) [place] % (Auto) 10.3 % % (4.5-13.0) Eos % (Auto) 3.0 % % (0.6-7.6) Baso % (Auto) 0.8 % % (0.3-1.7) Nucleat RBC Rel Count 0.0 % % (0.0-0.2) Absolute Neuts (auto) 3.80 10^3/uL 10^3/uL (1.70-6.50) Absolute Lymphs (auto) 1.87 10^3/uL 10^3/uL (1.00-3.00) Absolute Monos (auto) 0.68 10^3/uL 10^3/uL (0.30-0.80) Absolute Eos (auto) 0.20 10^3/uL 10^3/uL (0.03-0.40) Absolute Basos (auto) 0.05 10^3/uL 10^3/uL (0.02-0.10) Absolute Nucleated RBC 0.00 10^3/uL 10^3/uL (0-0.01) Immature Gran % 0.2 % % (0.0-1.1) Immature Gran # 0.01 10^3/uL 10^3/uL (0.00-0.10) Sodium Potassium Chloride Carbon Dioxide Anion Gap BUN Creatinine Estimated GFR Glucose Calcium POC Troponin I NT-Pro-B Natriuret Pep Medications Given: Prednisone (Prednisone) 5 mg PO DAILY [facility] Stop: 08/31/18 12:14 Last Admin: 03/04/18 14:03 Dose: 5 mg Tramadol HCl (Ultram) 50 mg PO DAILY@12 MARK Stop: 08/31/18 13:59 Last Admin: 03/04/18 14:03 Dose: 50 mg Point of Care Test Results: Chemistry 03/04/18 08:47 POC Troponin I 0.02 ng/mL ng/mL (0.00-0.08) Departure - Departure Disposition: [facility] Inpatient Acute Clinical Impression: Junctional bradycardia Syncope Qualifiers: Syncope type: vasovagal syncope Qualified Code(s): R55 - Syncope and collapse Condition: Good
[2018-03-04] MEDS ORDERED: ACETAMINOPHEN 500 MG TAB PO PRN (12:10)
--- NOTE | 2018-03-04 12:43 | CPEKG ---
Heart Rate: 59 RR Interval: 1017 P-R Interval: 176 QRSD Interval: 130 QT Interval: 448 QTC Interval: 444 P [place]: -55 QRS [place]: 37 T Wave [place]: -15 EKG Severity - ABNORMAL ECG - EKG Impression: SINUS OR ECTOPIC ATRIAL RHYTHM EKG Impression: RIGHT BUNDLE BRANCH BLOCK Electronically Signed By: Natalie Saenz 04-Mar-2018 15:20:23
[2018-03-04] MEDS ORDERED: TEARS/DEXTRAN 70/HYPROMELLOSE 15 ML OPHT.BTL EACHEYE PRN (13:18)
[2018-03-04] MEDS: traMADol 50 MG TAB PO SCH ×3 (14:03→22:20)
[2018-03-04] MEDS: predniSONE 5 MG TAB PO SCH (14:03)
[2018-03-04] MEDS ORDERED: ACETAMINOPHEN 325 MG TAB PO PRN (14:13)
[2018-03-04] MEDS ORDERED: ONDANSETRON 4 MG/2 ML VIAL IVP PRN (14:13)
[2018-03-04] MEDS ORDERED: ONDANSETRON DISINTEGRATING 4 MG TAB PO PRN (14:13)
--- NOTE | 2018-03-04 15:51 | GHP ---
[f rep st] HISTORY AND PHYSICAL DATE OF ADMISSION: 03/04/2018 CHIEF COMPLAINT: Syncopal event. HISTORY OF PRESENT ILLNESS: The patient is an 87-year-old female with a past medical history of CVA, hypertension, peripheral neuropathy, and essential tremor, who presented to the emergency room after having a syncopal event. She was sitting on the toilet, and the next thing she recalled is she was on the floor next to the toilet. She did not have any chest pain. She was not lightheaded. She says she has bars by the bathroom that help her. She has no recollection except sitting down on the toilet seat and then was on the ground. This occurred at 7 in the morning. She felt that she did not bear down. She has been eating fine. Her weight has probably slightly increased. She has chronic lower extremity swelling that has worsened over the last week or so. She has no fever, no chills. During my interview, she is feeling fine. PAST MEDICAL HISTORY: 1. Systemic lupus erythematosus, on prednisone. 2. Essential tremors. 3. CVA in 2003. 4. Celiac disease. 5. History of atrial fibrillation. 6. Peripheral neuropathy. 7. Arthritis. 8. Hypertension. 9. Asthma. 10. Gait instability. 11. Venous insufficiency. 12. Right bundle branch block, which was noted back in 2013. PAST SURGICAL HISTORY: 1. Partial hysterectomy. 2. Bladder surgery. 3. Parathyroid nodule removal. 4. Heart catheterization, 2000. SOCIAL HISTORY: She lives at [facility]. She has been since June 2016. 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 She has 4 children. She does not smoke. She does not drink alcohol. FAMILY HISTORY: Her mom at age 90 from heart disease. Her father of complications at age 53 from lupus. ALLERGIES: Aspirin, NSAIDs, penicillin, Lyrica, and gabapentin. REVIEW OF SYSTEMS: A 10-point review was performed, was negative other than the pertinent positives in the HPI and past medical history. HOME MEDICATIONS: Topamax 100 mg p.o. q.h.s., tramadol 50 mg daily at 12, tramadol 100 mg b.i.d. at 1730 and 2230, prednisone 5 mg daily, Restoril 30 mg p.o. q.h.s., Natural Balance 1-2 drops q.i.d. p.r.n., Aldactone 25 mg p.o. b.i.d., Klor-Con 10 mEq p.o. t.i.d., Protonix 40 mg daily, multivitamin 1 tab daily, Singulair 10 mg daily, Imodium 8 mg p.o. daily, Plavix 75 mg daily, vitamin D3 1000 units daily, calcium 500 mg daily, Tylenol Extra Strength 1000 mg daily p.r.n., and Xanax 0.5 mg p.o. b.i.d. PHYSICAL EXAM: GENERAL: The patient is an 87-year-old female who appears to be her stated years. VITAL SIGNS: Blood pressure is 162/71, heart rate of 54, respiratory rate of 16. O2 sats on 3 L are 97%. Temperature is 36.4 Celsius. HEENT: Eyes: Pupils are equal and reactive. EOMs are intact. No conjunctival injection noted. ENT: Normal ears. She is hard of hearing and wears a hearing aid. Her airway is moist. NECK: Trachea is midline. CARDIOVASCULAR: She is in a regular rate and rhythm. No murmurs, rubs, or gallops noted. CHEST: Lungs, normal respiratory effort, without wheezing, rales, or rhonchi. ABDOMEN: Soft, nontender. SKIN: She has ecchymosis to the left lower gluteus area. Otherwise, warm, dry, and intact. MUSCULOSKELETAL : She says she is able to ambulate well. PSYCHIATRIC: She is alert and oriented. Normal mood and affect. Normal judgment. Normal insight and memory. LABORATORY DATA: Chemistry panel shows a sodium of 143, potassium 3.8, chloride of 105, BUN of 14, creatinine of 1.1, glucose of 81. Troponin 0.02. CBC shows a white blood cell count of 6.61, hemoglobin 12.4, hematocrit 40, platelet count of 165. An EKG was performed in the emergency room, which showed a sinus rhythm with a right bundle branch. I reviewed the potline monitor. She has been at times in sinus rhythm and at times in a junctional rhythm. I reviewed her care with Dr. Carolin Saenz, emergency room physician. ASSESSMENT/PLAN: 1. Syncopal event. This was an unclear etiology, except that it could be related to an intermittent junctional rhythm. She also takes Xanax b.i.d., as well as a sleeping pill, which may have affected her. Will get an echocardiogram. Will monitor on the telemetry floor and see if she continues to go in and out of junctional rhythm. If she has this ongoing and has lightheadedness, she could possibly need a pacemaker. Spoken with cardiology and they will see her. 2. Abnormal EKG, noting that she has some junctional rhythm. Will get a repeat EKG in the morning. 3. Renal insufficiency. Creatinine is slightly elevated compared to her baseline. Will hold her diuretic for now and resume if this improves. 4. Significant lower extremity swelling. She says this is much worse than her baseline. Will check a BNP for further evaluation. Will also evaluate her echocardiogram. 5. Lupus erythematosus. Resume prednisone. 6. Peripheral neuropathy. She takes tramadol for this. 7. Hypertension. Will continue monitoring. 8. History of cerebrovascular accident. Plavix. 9. Deep venous thrombosis prophylaxis, high risk. Will initiate knee-high DOROTHY hose, as well as athrombic pumps and low-molecular weight heparin. 10. Length of stay: She will likely require less than a 2-midnight stay for further evaluation. This can be further evaluated in the morning. 11. Code status: Do not resuscitate. /[id number]/MODL MTDD
--- NOTE | 2018-03-04 16:01 | CPEKG ---
Heart Rate: 52 RR Interval: 1154 QRSD Interval: 138 QT Interval: 452 QTC Interval: 421 QRS [place]: 40 T Wave [place]: -4 EKG Severity - ABNORMAL ECG - EKG Impression: ACCELERATED JUNCTIONAL ESCAPE RHYTHM EKG Impression: RIGHT BUNDLE BRANCH BLOCK Electronically Signed By: Mervin Harrison 06-Mar-2018 07:38:00
--- NOTE | 2018-03-04 16:50 | ECHO ---
[email or web address] [address] Main: [phone] Fax: Transthoracic Echocardiogram Name: ESTRELLA MACARIO MR#: [id number] Study Date: 03/04/2018 Study Time: 02:38 PM Date of : 1930 Age: 87 year(s) Height: 154.9 cm (61 in.) Weight: 72.58 kg (160 lb.) BSA: 1.72 m2 Gender: Female Examination: Echo Indication: Syncope/leg swelling Image Quality: Contrast: Requested by: Maci Winston BP: 162 mmHg/71 mmHg Heart Rate: Rhythm: Indication: Syncope/leg swelling Procedure Staff Screw Remover: Dionne Baker RDCS Reading Physician: Cherie Delgado MD Requesting Provider: Conclusions: Normal size left ventricle. No LV hypertrophy. Normal global systolic LV function. The ejection fraction is estimated to be 65-70 %. No regional wall motion abnormality. Mildly dilated right ventricle. Normal RV function. The left atrium is mildly dilated. Moderate mitral valve regurgitation is present. Mild tricuspid regurgitation is present. There is no previous echocardiogram for comparison. Measurements: Chambers Valvular Assessment AV/MV Valvular Assessment TV/PV Normal Normal Normal Name Value Range Name Value Range Name Value Range Ao Charlene (MM): 3.1 cm (2.2 cm-3.7 AV Vmax: 1.82 m/s (1 m/s-1.7 TR Vmax: 2.89 mm/s ( - ) cm) m/s) TR PGmax: 33 mmHg ( - ) IVSd (2D): 1.0 cm (0.6 cm-1.1 AV meanP mmHg ( - ) syst. PAP: 38 mmHg ( - ) cm) HARRIET (VTI): 1.4 cm ( - ) LVDd (2D): 4.4 cm (3.9 cm-5.3 MV meanP mmHg ( - ) cm) MVA (Vmax): 1.5 m/s ( - ) LVDs (2D): 2.4 cm (2.1 cm-4 cm) LVPWd (2D): 0.7 cm ( - ) LVOTd 1.8 cm 1.8 cm mm LVEF (MOD4): 74 % (>=55 %) EF Range: 65-70 % Continued Measurements: Patient: ESTRELLA MACARIO Study Date: 03/04/2018 Page 1 of 2 02:38 PM Chambers Valvular Assessment AV/MV Valvular Assessment TV/PV Name Value Name Value Name Value LADs: 4.2 cm MV Annulus: 3.0 cm CVP (est.): 5 mmHg LADs Lon.4 cm MV VTI: 42.60 cm LA Area: 24.1 cm2 MR Vena Contracta: 0.3 cm MR ERO: 0.170 cm2 MR PISA radius: 6 mm MR Reg. Volume: 29 ml MR Reg. Fraction: 10 % Findings: Left Ventricle: Normal size left ventricle. No LV hypertrophy. Normal global systolic LV function. The ejection fraction is estimated to be 65-70 %. No regional wall motion abnormality. Right Ventricle: Mildly dilated right ventricle. Normal RV function. Left Atrium: The left atrium is mildly dilated. Right Atrium: The right atrium is mildly dilated. Mitral Valve: Mild mitral annular calcification. Moderate mitral valve regurgitation is present. Aortic Valve: Mild aortic cusp calcification is noted. There is no aortic valve regurgitation. Tricuspid Valve: The tricuspid valve is normal in appearance and function. Mild tricuspid regurgitation is present. The pulmonary artery pressure is normal. Pulmonic Valve: The pulmonic valve is normal in appearance and function. Trivial pulmonic valve regurgitation. Aorta: The aorta is normal. Pericardium: No pericardial effusion. There is pericardial fat. (No Signature Object) Patient: ESTRELLA MACARIO Study Date: 03/04/2018 Page 2 of 2 02:38 PM [id number]
[2018-03-04] MEDS ORDERED: hydrALAZINE 10 MG TAB PO PRN (17:04)
[2018-03-04] MEDS: MONTELUKAST SODIUM 10 MG TAB PO SCH (17:09)
[2018-03-04] MEDS: CLOPIDOGREL BISULFATE 75 MG TAB PO SCH (17:09)
--- NOTE | 2018-03-04 18:21 | GCON ---
[f rep st] CONSULTATION CARDIAC CONSULTATION DATE OF CONSULTATION: 03/04/2018 CHIEF COMPLAINT: Syncope. HISTORY OF PRESENT ILLNESS: The patient is an 87-year-old female with a history of hypertension, lupus, and celiac disease, who presented to the hospital with syncope. This morning she woke up feeling fine and walked to the toilet. While sitting on the toilet, she had a probable syncopal event. She recalls falling, but does not remember if she hit the floor. She did bruise her left hip and shoulder. On admission to the hospital, she has had intermittent junctional rhythm at a rate of 50 to 60 beats per minute. Her initial troponin is negative. She has noted that she has been more fatigued than usual, but denies any lightheadedness or dizziness. She has also been more diaphoretic and noted increased lower extremity edema over the last month. She currently lives at [facility] and participates in exercise classes 2 times a week. She denies any exertional chest discomfort or dyspnea on exertion. PAST MEDICAL HISTORY: Hypertension, reflux, celiac disease, lupus, neuropathy. FAMILY HISTORY: Negative for coronary artery disease. SOCIAL HISTORY: She currently resides at [facility]. She denies any history of tobacco use. She is accompanied by her daughter. HOME MEDICATIONS: Plavix 75 mg daily, Singulair 10 mg daily, tramadol 100 mg b.i.d., Xanax 0.5 mg twice daily, multivitamin daily, Restoril 30 mg at bedtime , prednisone 5 mg daily, Imodium 8 mg daily, Tylenol p.r.n., vitamin D3, calcium , potassium 10 mEq t.i.d., spironolactone 25 mg b.i.d., Protonix 40 mg b.i.d., Topamax 100 mg at bedtime. ALLERGIES: She is allergic to aspirin and NSAIDs, which cause anaphylactic reaction. She is also allergic to penicillin, gabapentin, and Lyrica. REVIEW OF SYSTEMS: A 10-point review of systems is negative except for what is stated in the H and P. PHYSICAL EXAMINATION: VITAL SIGNS: Blood pressure 162/71, heart rate 54, oxygen saturation 97% on 3 L, afebrile. EYES: Pupils are equal. NECK: No carotid bruits or JVD present. LUNGS: Clear to auscultation. No wheezes, rhonchi, or crackles auscultated. CARDIAC: Regular rate and rhythm without any significant murmurs, rubs, or gallops appreciated. ABDOMEN: Soft, nontender, nondistended. EXTREMITIES: Palpable pulses with mild edema bilaterally and evidence of venous stasis. NEUROLOGIC: Nonfocal. PSYCHIATRIC : Mood and affect appropriate. SKIN: No obvious rashes or ecchymosis identified. LABORATORY: Troponin negative x1. BNP 1090. Sodium 143, potassium 3.8, chloride 105, bicarb 31, BUN 14, creatinine 1.1. Calcium 8.9. DIAGNOSTIC STUDIES: EKG shows junctional rhythm at a rate of 60 with a right bundle branch block. She has been monitored on telemetry and is having intermittent junctional rhythm at a rate of 50 to 60 beats per minute, interpreted by me. Her echocardiogram showed preserved LV function without any wall motion abnormalities. She has moderate mitral regurgitation. ASSESSMENT: The patient is an 87-year-old female who presents with a probable syncopal event with intermittent junctional rhythm seen on telemetry. PLAN: The patient had a probable syncopal event this morning. She has been monitored on telemetry and is having intermittent junctional rhythm at a rate of 50 to 60 beats per minute. She denies any prior presyncopal or syncopal events. An echocardiogram showed preserved LV function without any significant wall motion abnormalities and her initial troponin is negative. The patient will continue to be monitored on telemetry and she will be kept n.p.o. for probable pacemaker in the morning. She is allergic to penicillin and therefore , vancomycin would be used for antibiotic therapy prior to and post procedure. She should remain on her current hypertensive therapy. She will be kept n.p.o. after midnight in anticipation for a possible pacemaker. /[id number]/MODL MTDD
[2018-03-04] MEDS ORDERED: PANTOPRAZOLE SODIUM 40 MG TAB PO SCH (21:00)
[2018-03-04] MEDS: TOPIRAMATE 100 MG TAB PO SCH (22:22)
[2018-03-04] MEDS: TEMAZEPAM 15 MG CAP PO SCH (22:22)
[2018-03-05] MEDS ORDERED: PANTOPRAZOLE SODIUM 40 MG TAB PO SCH (09:00)
[2018-03-05] MEDS: predniSONE 5 MG TAB PO SCH (09:02)
[2018-03-05] MEDS: MULTIVITAMINS 1 EACH TAB PO SCH (09:02)
[2018-03-05] MEDS: CALCIUM CARBONATE 500 MG TAB PO SCH (09:02)
[2018-03-05] MEDS: PANTOPRAZOLE SODIUM 40 MG TAB PO SCH (09:03)
[2018-03-05] MEDS: CHOLECALCIFEROL VIT D3 1,000 UNITS TAB PO SCH (09:03)
[2018-03-05] MEDS: ENOXAPARIN 30 MG/0.3 ML SYR SC SCH (09:03)
--- NOTE | 2018-03-05 09:44 | SOAPPROG ---
SOAP Progress Note Assessment/Plan: Assessment/Plan: This is a 87 yr old female with past history of CVA, who comes with an episode of fall/ syncope. Pt is unclear whether she passed out. She has not had episodes before. SHe was on the toilet when this happened. She denies confusion, nausea, diaphoresis immediately after the event. However, she does have increased diaphoresis for the past month or so. Pt had what appears to be accelerated junctional rhythm suppressing sinus rhythm during admission with rates in the 50s and 60s. Overnight, she did not have significant drop in the HR. There are no pauses. At current point in time, the etiology of the episode is not clear. will keep her overnight on telemonitor. Will observe for any pauses, bradycardia, heart block. If none observed, recommend loop recorder implant for syncope of unknown etiology Pt and the family explained this and they are agreeable to it. 03/05/18 09:41 Subjective: pt is feeling fine. She is able to describe the event in detail. No further weakness. No presyncope. No lightheadedness. Objective: Vital Signs Temp Pulse Resp BP Pulse Ox 36.6 C 68 18 138/75 H 98 03/05/18 08:00 03/05/18 08:00 03/05/18 08:00 03/05/18 08:00 03/05/18 08:00 Laboratory Results 03/05/18 04:25 03/04/18 03/05/18 03/06/18 05:59 05:59 05:59 Intake Total 600 Output Total 1550 Balance -950 Physical Exam - Physical Exam General Appearance: alert, no apparent distress EENT: PERRL/EOMI, normal ENT inspection Neck: non-tender, full range of motion, supple Respiratory: lungs clear Cardiac/Chest: regular rate, rhythm, No edema, No gallop Abdomen: non-tender, soft, No organomegaly Skin: warm/dry ICD10 Worksheet Patient Problems: Problems Problem Status Onset Junctional bradycardia Acute Syncope Acute Cervical pain (neck) Acute Fall Acute GI bleeding Acute Hypokalemia Acute MRSA (methicillin resistant Staphylococcus aureus) Acute ~06/16/17
[2018-03-05] MEDS ORDERED: traMADol 50 MG TAB PO SCH (12:00)
[2018-03-05] MEDS: traMADol 50 MG TAB PO SCH ×3 (12:07→22:38)
--- NOTE | 2018-03-05 15:17 | HOSPPROG ---
Hospitalist Progress Note Assessment/Plan: 87 yo F with hx of CVA, HTN presenting s/p syncope # syncope: at this time etiology is unclear, initially concerning for cardiac syncope, appreciate cardiology consultation. Noted to have accelerated junctional rhythm as well as occasional bradycardia as possible etiology, plan to monitor overnight on telemetry. Echo reviewed with moderate MR, normal EF. No plan for PPM at this point. # minesh: held diuretic overnight, improved, will resume aldactone # LLE swelling: chronic, per patient may be worse than her baseline, echo as above, likely partially related to chronic prednisone use # SlE: continue prednisone # hx of CVA: no significant residual sxs # p a fib: with current junctional rhythm as above, no rate controlling meds # essential tremor, peripheral neuropathy--chronic # IP status, royal need at least 48 hours for eval and mgmt of abnormal heart rhythm Patient new to my care. Old records reviewed and summarized as above. Care plan reviewed with cardiology Subjective: no significnat overnight events, paitent noted abnormal heart beat while walking Objective: Vital Signs Temp Pulse Resp BP Pulse Ox 36.8 C 65 18 131/67 H 98 03/05/18 12:00 03/05/18 12:00 03/05/18 12:00 03/05/18 12:00 03/05/18 12:00 Laboratory Results 03/05/18 04:25 03/04/18 03/05/18 03/06/18 05:59 05:59 05:59 Intake Total 600 Output Total 1550 Balance -950 awake alert elderly anicteric op clear rrr systolic murmur cta b soft nt nd ble edema warm dry well perfused oriented appropriate ICD10 Worksheet Patient Problems: Problems Problem Status Onset GI bleeding Acute Syncope Acute Junctional bradycardia Acute MRSA (methicillin resistant Staphylococcus aureus) Acute ~06/16/17 Hypokalemia Acute Cervical pain (neck) Acute Fall Acute
--- NOTE | 2018-03-05 16:00 | ASMTCMCOM ---
CM Note CM Note Notes: Pt admitted following a fall/syncopal event. Pt normally resides at [facility]. Has had [facility] in the past. PT recommending home with [facility] Outpatient Therapy. OT ordered; awaiting eval. CM will follow. Dc poc-TBD Date Signed: 03/05/2018 03:59 PM Electronically Signed By:Mar Hsu RN
--- NOTE | 2018-03-05 17:52 | PDMN ---
Medical Necessity Medical necessity: C/M review: est. > 2 MN LOS for eval and TX of acute syncope of unclear etiology, initially concerning for cardiac syncope, patient was noted to have accelerated junctional rhythm and occasional bradycardia as possible etiology, acute kidney, requiring Cardiology consult, ongoing cardiac monitoring, acute inpt PT/OT, comorbid chronic left lower extremity swelling per 03/05/2018 Hospitalist progress note.
[2018-03-05] MEDS: CLOPIDOGREL BISULFATE 75 MG TAB PO SCH (18:25)
[2018-03-05] MEDS: MONTELUKAST SODIUM 10 MG TAB PO SCH (18:26)
[2018-03-05] MEDS: TEMAZEPAM 15 MG CAP PO SCH (22:38)
[2018-03-05] MEDS: TOPIRAMATE 100 MG TAB PO SCH (22:39)
[2018-03-06] MEDS ORDERED: ALPRAZolam 0.5 MG TAB PO SCH (09:00)
[2018-03-06] MEDS ORDERED: SPIRONOLACTONE 25 MG TAB PO SCH (09:00)
[2018-03-06] MEDS: MULTIVITAMINS 1 EACH TAB PO SCH (09:46)
[2018-03-06] MEDS: CHOLECALCIFEROL VIT D3 1,000 UNITS TAB PO SCH (09:46)
[2018-03-06] MEDS: PANTOPRAZOLE SODIUM 40 MG TAB PO SCH (09:46)
[2018-03-06] MEDS: CALCIUM CARBONATE 500 MG TAB PO SCH (09:46)
[2018-03-06] MEDS: predniSONE 5 MG TAB PO SCH (09:46)
--- NOTE | 2018-03-06 10:36 | PDDCSUM ---
Discharge Summary Discharge Summary: Dates of service 03/04-03/06/18 Consultations: cardiology Procedures performed: echocardiogram, LINQ placement Hospital course by problem: 87 yo F with hx of CVA, HTN presenting s/p syncope # syncope: etiology likely vagal, occurred while on the toilet, w/u here reassuring including echo and telemetry monitoring, cardiology placing LINQ prior to dc # minesh: held diuretic overnight, improved, resumed aldactone # LLE swelling: chronic, per patient may be worse than her baseline, echo as above, likely partially related to chronic prednisone use # SlE: continue prednisone # hx of CVA: no significant residual sxs # p a fib: with current junctional rhythm as above, no rate controlling meds # essential tremor, peripheral neuropathy--chronic DC home f/u with cardiology and PCP Items for f/u: LINQ monitoring > 35 min spent in dc of patient more than half in coordination of care
[2018-03-06] MEDS: ENOXAPARIN 30 MG/0.3 ML SYR SC SCH (11:25)
[2018-03-06] MEDS: traMADol 50 MG TAB PO SCH (11:51)
[2018-03-06 12:26] VITALS: BP 115/58
--- NOTE | 2018-03-06 12:54 | ASMTCMCOM ---
CM Note CM Note Notes: Dc order received. Spoke with PT; pt will be staying with her daughter, Starla, before returning to [facility]. Met with pt & Starla to discuss HHC vs Outpatient Therapy. Pt states she is only staying at her daughter's house for a day or two; informed "[facility] needs to reevaluate [facility]". At this time, pt does not feel like she would benefit from HHC & would like to resume Otpt therapy once home. Pt instructed to call her PCP to obtain a HHC order if she ends up staying at her daughter's house longer than anticipated. No other nees at this time. Dc poc- Home with daughter then [facility] w/Otpt therapy Date Signed: 03/06/2018 12:53 PM Electronically Signed By:Mar Hsu RN
--- NOTE | 2018-03-06 12:55 | ASDISCHSUM ---
Discharge Information Plan Status:Assisted Living Medically Cleared to Leave: Discharge Date: D/C Disposition:Assisted Living ADT D/C Disposition:Home, Routine, Self-Care Projected Discharge Date:03/06/2018 01:00 PM Transportation at D/C:Family Discharge Delay Reason: Follow-Up Date:03/06/2018 01:00 PM Discharge Slot: Final Diagnosis: Placement Information Referral Type:Assisted Living Residence Referral ID:[id number] Provider Name:Johan Mann mariah Address 1:[address] Phone Number: Address 2:[place] Fax Number: [facility]:[place] Selection Factors: State:[place] Patient Contact Information Contact Name:ANTONIO Relationship:Daughter Address: Work Phone: [facility] Phone: [facility] Code:[place] [address] Email: Financial Information Financial Class:Medicare Primary Plan Desc:MEDICARE OUTPATIENT Primary Plan Number:[id number] Secondary Plan Desc:MEDICAID HEALTH [employer] [place] Secondary Plan Number:[id number] Assessment Information [facility] CM Progress Note CM Note CM Note Notes: Pt admitted following a fall/syncopal event. Pt normally resides at [facility]. Has had [facility] in the past. PT recommending home with [facility] Outpatient Therapy. OT ordered; awaiting eval. CM will follow. Dc poc-TBD Date Signed: 03/05/2018 03:59 PM Electronically Signed By:Mar Hsu RN [facility] CM Progress Note CM Note CM Note Notes: Dc order received. Spoke with PT; pt will be staying with her daughter, Starla, before returning to [facility] [place]. Met with pt & Starla to discuss HHC vs [facility] Outpatient Therapy. Pt states she is only staying at her daughter's house for a day or two; informed "[facility] at needs to reevaluate pt before returning to [place]". At this time, pt does not feel like she would benefit from HHC & would like to resume Otpt therapy once home. Pt instructed to call her PCP to obtain a HHC order if she ends up staying at her daughter's house longer than anticipated. No other nees at this time. Dc poc- Home with daughter [facility] w/Otpt therapy Date Signed: 03/06/2018 12:53 PM Electronically Signed By:Mar Hsu RN Intervention Information Intervention Type:*SAL-Signed Date of Service:03/04/2018 02:45 PM Patient Type:Observation Staff Member:Aggie Rea Hours: Discipline: Severity: Comment:
--- NOTE | 2018-03-06 17:52 | EPPROC ---
Electrophysiology Procedure Note: Procedure: LINQ implant Indication: Syncope of unknown etiology Procedure: Parts prepared and draped. LA given. Incision placed. Using usual technique,LINQ was implanted. Wisdom placed. Dry sterile dressing placed. Conclusion: Successful LINQ implant Patient Problems: Problems Problem Status Onset Cervical pain (neck) Acute Fall Acute GI bleeding Acute Hypokalemia Acute Junctional bradycardia Acute MRSA (methicillin resistant Staphylococcus aureus) Acute ~06/16/17 Syncope Acute
== END 2018-03-06 15:00 | disposition home or self-care (01) | DRG 259 ==
LOC: EDUNIT# → F2W 12:58 → OBSVTOIN 03-05 13:19
PROVIDERS: ADMIT Internal Medicine; ATTEND Internal Medicine
PROC: 0JH60PZ Insertion of Cardiac Rhythm Related Device into Chest Subcutaneous Tissue and Fascia, Open Approach (ICD-10-PCS; principal; 2018-03-06)
DX: R55 Syncope and collapse (principal); N17.9 Acute kidney failure, unspecified; I10 Essential (primary) hypertension; I48.0 Paroxysmal atrial fibrillation; M79.89 Other specified soft tissue disorders; M32.9 Systemic lupus erythematosus, unspecified; G25.0 Essential tremor; G62.9 Polyneuropathy, unspecified; W18.11XA Fall from or off toilet without subsequent striking against object, initial encounter; Z86.73 Personal history of transient ischemic attack (TIA), and cerebral infarction without residual deficits; Z66 Do not resuscitate
CPT/HCPCS: 84484-PO; 97116-GP; 97161-GP; 97165-GO; 97535-GO; G0378; G8978-GP-CJ; G8979-GP-CI; G8987-GO-CI; G8988-GO-CI; J1650; J7512

== ENCOUNTER 2018-06-08 18:51 | Emergency (ER) | payer OTHER, MEDICAID ==
--- NOTE | 2018-06-08 19:08 | EDPHY ---
H & P Stated Complaint: fall skin tears Time Seen by Provider: 06/08/18 19:07 - Personal History Current Tetanus Diphtheria and Acellular Pertussis (TDAP): Yes - Medical/Surgical History Hx Asthma: Yes Hx Chronic Respiratory Disease: No Hx Diabetes: No Hx Cardiac Disease: Yes Hx Renal Disease: No Hx Cirrhosis: No Hx Alcoholism: No Hx HIV/AIDS: No Hx Splenectomy or Spleen Trauma: No Other PMH: medical Lupus, HTN, Mild Stroke (L sided wkns), Parathyroid lump, Pneumonia, Osteoporosis, Periphpral Neuripathy , Asthma Arthritis Celiac Disease , cataracts. psh- Partial Hysterectomy, Bladder, Heart Catherization, - Social History Smoking Status: Never smoked Constitutional: Initial Vital Signs Temperature (C) 36.5 C 06/08/18 19:03 Heart Rate 72 06/08/18 19:03 Respiratory Rate 16 06/08/18 19:03 Blood Pressure 211/97 H 06/08/18 19:03 O2 Sat (%) 100 06/08/18 19:03 O2 Delivery Mode Nasal Cannula O2 (L/minute) 3 Allergies/Adverse Reactions: aspirin Allergy (Severe, Verified 06/08/18 19:03) Anaphylaxis gabapentin Allergy (Severe, Verified 06/08/18 19:03) facial + peripheral edema + swollen throat Penicillins Allergy (Severe, Verified 06/08/18 19:03) Anaphylaxis furosemide Allergy (Unknown, Verified 06/08/18 19:03) NSAIDS (Non-Steroidal Anti-Inflamma [NSAIDS (Non-Steroidal Anti-Inflammatory Drug)] Allergy (Unknown, Verified 06/08/18 19:03) Abdominal Pain pregabalin Allergy (Unknown, Verified 06/08/18 19:03) edema Home Medications: Medication Instructions Recorded ALPRAZolam [Xanax 0.5 MG (*)] 0.5 mg PO BID@07/23/14 Clopidogrel Bisulfate [Plavix (*)] 75 mg PO DAILY@172907/23/14 Montelukast Sodium [Singulair 10 10 mg PO DAILY@1800 07/23/14 mg (*)] Tears/Hypromellose [Natural 1 - 2 drops EACHEYE QID PRN 07/23/14 Balance] traMADol [Ultram 50 mg (*)] 50 mg PO DAILY@12 07/23/14 traMADol [Ultram 50 mg (*)] 100 mg PO BID@1730,2230 07/23/14 Loperamide HCl [Imodium 2 mg (*)] 8 mg PO DAILY 11/04/15 Multivitamins [Multivitamin (*)] 1 each PO DAILY 11/04/15 Temazepam [Restoril] 30 mg PO HS 11/04/15 predniSONE 5 mg PO DAILY 11/04/15 Acetaminophen [Tylenol ES 500 mg 1,000 mg PO DAILY PRN 11/16/17 (*)] Calcium Carbonate [Calcium] 500 mg PO DAILY 11/16/17 Cholecalciferol Vit D3 [Vitamin D3 1,000 units PO DAILY 11/16/17 (*)] Potassium Chloride [Klor-Con 10] 10 meq PO TID 11/16/17 Spironolactone [Aldactone 25 MG 25 mg PO BID@09,1730 11/16/17 (*)] Topiramate [Topamax] 100 mg PO HS 03/04/18 Pantoprazole Sodium [Protonix 40mg 40 mg PO DAILY 03/05/18 (*)] Medical Decision Making ED Course/Re-evaluation: CHIEF COMPLAINT: Fall HISTORY OF PRESENT ILLNESS: This patient is an anticoagulated (Plavix) 88 year old female with history of CVA who presents following a mechanical fall. She was walking with her walker and hit a door frame on her right side as she went outside, and this caused her to fall onto her tailbone. She denies any significant pain in her coccyx or sacrum and was able to ambulate follwoing the event. She did not strike her head or lose consciousness. Her primary complaint is two skin tears to her right upper extremity which bled profusely since she is anticoagulated. She denies any other trauma and has no further complaints. No chest pain, shortness of breath, lightheadedness, headache, or other associated symptoms either currently or before her fall. REVIEW OF SYSTEMS: A comprehensive 10 system review of systems is otherwise negative aside from elements mentioned in the history of present illness and medical decision making. PHYSICAL EXAM: HR, BP, O2 Sat, RR. Temp noted General Appearance: Alert, well hydrated, appropriate, and non-toxic appearing. Head: Atraumatic without scalp tenderness or obvious injury Eyes: Pupils equal, round, reactive to light and accommodation, EOMI, no trauma , no injection. Ears: Clear bilaterally, no perforation, normal landmarks Nose: Atraumatic, no rhinorrhea, clear. Throat: There is no erythema or exudates, no lesions, normal tonsils, mucus membranes moist. Neck: Supple, 2+ carotid upstroke, nontender, no lymphadenopathy. Respiratory: No retractions, no distress, no wheezes, and no accessory muscle use. Lungs are clear to auscultation bilaterally. Cardiovascular: Regular rate and rhythm, no murmurs, rubs, or gallops. Bilateral carotid, radial, dorsalis pedis, and posterior tibial pulses intact. Good capillary refill all extremities. Gastrointestinal: Abdomen is soft, nontender, non-distended, no masses, no rebound, no guarding, no peritoneal signs. Musculoskeletal: Normal active ROM of all extremities. Neurological: Alert, appropriate, and interactive. Nonfocal exam at baseline for patient. Skin: Two skin tears to the right forearm. No rashes, good turgor, no nodules on palpation. Past medical history: History of CVA with mild resultant deficits. Hypertension. Lupus. Osteoporosis. Peripheral neuropathy. Asthma. Celiac disease. Arthritis. Past surgical history: Cardiac catheterization. Partial hysterectomy. Family history: Noncontributory. Social history: Family at bedside. Lives in [place]. Retired. DIFFERENTIAL DIAGNOSIS: The differential diagnosis for the patient's trauma included but was not limited to intracranial injury, long bone and pelvic bone fractures, spinal injury, intra-abdominal injury, and intra-thoracic injury. MEDICAL DECISION [id number] y/o female presents with two skin tears to her right upper extremity following a mechanical fall. No further trauma. Plan to clean and dress the skin tears under standard ED protocol. Patient is comfortable returning home following this. Plan to discharge home in good condition. Follow up and return precautions discussed. She will see her primary care provider for followup. She is comfortable with this plan. Departure - Departure Disposition: Home, Routine, Self-Care Clinical Impression: Skin tear of right upper extremity Condition: Good Instructions: Skin Tear (ED) Additional Instructions: 1. Follow up with your primary care provider. 2. Return to the emergency department for persistent bleeding or if you develop fever, redness, discharge from wound, increasing pain or other worsening of condition. Referrals: Clint Auguste MD [Primary Care Provider] - As per Instructions Report Scribed for: Daniel Ramos Report Scribed by: Noreen Brink Date of Report: 06/08/18 Time of Report: 19:16
[2018-06-08 19:48] VITALS: BP 157/77
== END 2018-06-08 19:46 | disposition home or self-care (01) ==
DX: S51.801A Unspecified open wound of right forearm, initial encounter (principal); Z66 Do not resuscitate; W19.XXXA Unspecified fall, initial encounter; Y92.9 Unspecified place or not applicable; Y99.9 Unspecified external cause status; Y93.9 Activity, unspecified

== ENCOUNTER 2018-06-20 12:08 | Inpatient (IN) | payer OTHER, MEDICAID ==
--- NOTE | 2018-06-20 12:40 | EDPHY ---
H & P Time Seen by Provider: 06/20/18 12:40 HPI/ROS: CHIEF COMPLAINT: Right hip pain, found on the floor HISTORY OF PRESENT ILLNESS: Daughter was called by Johan Lowe this morning, the patient says she fell out of bed this morning and landed on her left hip, could not get up. She has had nausea vomiting and diarrhea all night. She feels very thirsty. Right hip pain does not radiate, not really worse with movement. Not associated with weakness or numbness in the left leg. No head injury or neck pain and no weakness or numbness in extremities. No hematemesis or coffee-ground emesis or melena. She feels severely weak which is general and not focal. REVIEW OF SYSTEMS: Eye: no change in vision ENT: no sore throat Cardiac: no chest pain or syncope Pulmonary: no cough or SOB Abdomen: HPI, had abdominal pain at the time of onset of the vomiting and diarrhea but not really now. Musculoskeletal: No neck or back pain, as left hip and left arm pain Skin: 2 areas of abrasion on the right arm which are healing from a previous fall, bruising on the left upper arm. Neuro: no headache Constitutional: no fever : no urinary symptoms A comprehensive 10 point review of systems is otherwise negative aside from elements mentioned in the history of present illness. PAST MEDICAL HISTORY: Includes lupus, hypertension, chronic left-sided weakness after stroke. Peripheral neuropathy asthma, arthritis, partial hysterectomy. Social history: [facility] resident, here with her daughter General Appearance: Alert and conversant, cooperative. Eyes: No scleral icterus. ENT, Mouth: Dry mucous membranes Respiratory: Normal respiratory effort, breath sounds equal, lungs are clear to auscultation. Cardiovascular: Regular rate and rhythm. Gastrointestinal: Abdomen is soft and non tender. No rebound or guarding. Neurological: Alert, face symmetric, normal motor and sensory in extremities. She knows her age, where she is, which month it is. Speech is fluent and she can move all 4 extremities. Skin: 2 dressings on the right upper arm without surrounding erythema or lymphangitis, bruising on the left upper arm. Chronic venous stasis changes both anterior shins. Musculoskeletal: No hip pain on left or right with axial loading or rotation. Some tenderness to palpation over the lateral aspect of the left hip. No spinal tenderness. Some midline left arm tenderness. Psychiatric: Not agitated. Emergency Department course/MDM: Patient arrives febrile 38.3 with heart rate of 79 and blood pressure 140/77. Plan to check chest x-ray and urinalysis, screening labs including lactate. IV fluid bolus, x-rays of the left arm and left hip. IV normal saline. Clinically dehydrated, will require admission. 1353: Chest humerus and hip x-rays negative, urinalysis pending. 1428: Discussed with [facility] med/surg. 1449: Results discussed with the family, they said that she might have hit her head, is on Plavix, noncontrast head CT. Imaging negative per Dr. Maza, CT head. Patient does not have clinical evidence of acute surgical abdominal process. More likely acute gastrointestinal process giving her fever nausea vomiting diarrhea and dehydration. Smoking Status: Never smoked Constitutional: Initial Vital Signs Temperature (C) 38.3 C 06/20/18 12:13 Heart Rate 79 06/20/18 12:13 Respiratory Rate 16 06/20/18 12:13 Blood Pressure 140/77 H 06/20/18 12:13 O2 Sat (%) 94 06/20/18 12:13 O2 Delivery Mode Nasal Cannula O2 (L/minute) 3 Allergies/Adverse Reactions: aspirin Allergy (Severe, Verified 06/08/18 19:03) Anaphylaxis gabapentin Allergy (Severe, Verified 06/08/18 19:03) facial + peripheral edema + swollen throat Penicillins Allergy (Severe, Verified 06/08/18 19:03) Anaphylaxis furosemide Allergy (Unknown, Verified 06/08/18 19:03) NSAIDS (Non-Steroidal Anti-Inflamma [NSAIDS (Non-Steroidal Anti-Inflammatory Drug)] Allergy (Unknown, Verified 06/08/18 19:03) Abdominal Pain pregabalin Allergy (Unknown, Verified 06/08/18 19:03) edema Home Medications: Medication Instructions Recorded ALPRAZolam [Xanax 0.5 MG (*)] 0.5 mg PO BID@07/23/14 Clopidogrel Bisulfate [Plavix (*)] 75 mg PO DAILY@172907/23/14 Montelukast Sodium [Singulair 10 10 mg PO DAILY@1800 07/23/14 mg (*)] Tears/Hypromellose [Natural 1 - 2 drops EACHEYE QID PRN 07/23/14 Balance] traMADol [Ultram 50 mg (*)] 50 mg PO DAILY@12 07/23/14 traMADol [Ultram 50 mg (*)] 100 mg PO BID@1730,2230 07/23/14 Loperamide HCl [Imodium 2 mg (*)] 8 mg PO DAILY 11/04/15 Multivitamins [Multivitamin (*)] 1 each PO DAILY 11/04/15 Temazepam [Restoril] 30 mg PO HS 11/04/15 predniSONE 5 mg PO DAILY 11/04/15 Acetaminophen [Tylenol ES 500 mg 1,000 mg PO DAILY PRN 11/16/17 (*)] Calcium Carbonate [Calcium] 500 mg PO DAILY 11/16/17 Cholecalciferol Vit D3 [Vitamin D3 1,000 units PO DAILY 11/16/17 (*)] Potassium Chloride [Klor-Con 10] 10 meq PO TID 11/16/17 Spironolactone [Aldactone 25 MG 25 mg PO BID@09,1730 11/16/17 (*)] Topiramate [Topamax] 125 mg PO HS 03/04/18 Pantoprazole Sodium [Protonix 40mg 40 mg PO DAILY 03/05/18 (*)] Medical Decision Making - Diagnostics Imaging Results: Imaging Impressions Hip X-Ray 06/20/18 12:55 Impression: Nothing acute identified. Humerus X-Ray 06/20/18 12:55 Impression: Nothing acute identified. Chest X-Ray 06/20/18 12:56 Impression: Bronchitis and left basilar atelectasis. No effusion. Imaging: I viewed and interpreted images myself Differential Diagnosis: Differential for hip injury considered including but not limited to contusion, hip dislocation, hip fracture, pelvic fracture. - Data Points Laboratory Results: Laboratory Results 06/20/18 12:00 06/20/18 12:00 06/20/18 06/20/18 06/20/18 14:01 12:45 12:00 WBC RBC Hgb Hct MCV MCH MCHC RDW Plt Count MPV Neut % (Auto) Lymph % (Auto) [place] % (Auto) Eos % (Auto) Baso % (Auto) Nucleat RBC Rel Count Absolute Neuts (auto) Absolute Lymphs (auto) Absolute Monos (auto) Absolute Eos (auto) Absolute Basos (auto) Absolute Nucleated RBC Immature Gran % Immature Gran # Platelet Estimate PT INR APTT VBG Lactic Acid 1.9 mmol/L mmol/L (0.7-2.1) Sodium Potassium Chloride Carbon Dioxide Anion Gap BUN Creatinine Estimated GFR Glucose Calcium Total Bilirubin 0.8 mg/dL mg/dL (0.1-1.4) AST ALT Alkaline Phosphatase Total Protein Albumin Urine Color YELLOW Urine Appearance CLEAR Urine pH 8.0 H (5.0-7.5) Ur Specific [place] 1.011 (1.002-1.030) Urine Protein NEGATIVE (NEGATIVE) Urine Ketones TRACE H (NEGATIVE) Urine Blood NEGATIVE (NEGATIVE) Urine Nitrate NEGATIVE (NEGATIVE) Urine Bilirubin NEGATIVE (NEGATIVE) Urine Urobilinogen NEGATIVE EU EU (0.2-1.0) Ur Leukocyte Esterase NEGATIVE (NEGATIVE) Urine Glucose NEGATIVE (NEGATIVE) 06/20/18 06/20/18 06/20/18 12:00 12:00 12:00 WBC 11.98 10^3/uL H 10^3/uL (3.80-9.50) RBC 4.97 10^6/uL 10^6/uL (4.18-5.33) Hgb 15.5 g/dL g/dL (12.6-16.3) Hct 48.0 % H % (38.0-47.0) MCV 96.6 fL fL (81.5-99.8) MCH 31.2 pg pg (27.9-34.1) MCHC 32.3 g/dL L g/dL (32.4-36.7) RDW 13.1 % % (11.5-15.2) Plt Count TNP MPV TNP Neut % (Auto) 89.9 % H % (39.3-74.2) Lymph % (Auto) 2.7 % L % (15.0-45.0) [place] % (Auto) 6.2 % % (4.5-13.0) Eos % (Auto) 0.5 % L % (0.6-7.6) Baso % (Auto) 0.4 % % (0.3-1.7) Nucleat RBC Rel Count 0.0 % % (0.0-0.2) Absolute Neuts (auto) 10.78 10^3/uL H 10^3/uL (1.70-6.50) Absolute Lymphs (auto) 0.32 10^3/uL L 10^3/uL (1.00-3.00) Absolute Monos (auto) 0.74 10^3/uL 10^3/uL (0.30-0.80) Absolute Eos (auto) 0.06 10^3/uL 10^3/uL (0.03-0.40) Absolute Basos (auto) 0.05 10^3/uL 10^3/uL (0.02-0.10) Absolute Nucleated RBC 0.00 10^3/uL 10^3/uL (0-0.01) Immature Gran % 0.3 % % (0.0-1.1) Immature Gran # 0.03 10^3/uL 10^3/uL (0.00-0.10) Platelet Estimate Not Reported PT 14.6 SEC SEC (12.0-15.0) INR 1.12 (0.83-1.16) APTT 28.6 SEC SEC (23.0-38.0) VBG Lactic Acid Sodium 142 mEq/L mEq/L (135-145) Potassium 3.9 mEq/L mEq/L (3.3-5.0) Chloride 100 mEq/L mEq/L (97-110) Carbon Dioxide 28 mEq/l mEq/l (22-31) Anion Gap 14 mEq/L mEq/L (8-16) BUN 20 mg/dL mg/dL (7-23) Creatinine 0.9 mg/dL mg/dL (0.6-1.0) Estimated GFR 59 Glucose 104 mg/dL H mg/dL (70-100) Calcium 9.7 mg/dL mg/dL (8.5-10.4) Total Bilirubin 0.8 mg/dL mg/dL (0.1-1.4) AST 31 IU/L IU/L (14-46) ALT 29 IU/L IU/L (9-52) Alkaline Phosphatase 48 IU/L IU/L (38-126) Total Protein 6.5 g/dL g/dL (6.3-8.2) Albumin 4.0 g/dL g/dL (3.5-5.0) Urine Color Urine Appearance Urine pH Ur Specific [place] Urine Protein Urine Ketones Urine Blood Urine Nitrate Urine Bilirubin Urine Urobilinogen Ur Leukocyte Esterase Urine Glucose Medications Given: Discontinued Medications Sodium Chloride (Ns) 2,700 mls @ 5,400 mls/hr 30 ml/kg infuse over 30 min ( 2700 ml) IV EDNOW ONE PRN Reason: Protocol Stop: 06/20/18 13:27 Last Admin: 06/20/18 13:42 Dose: 2,700 mls Tramadol HCl (Ultram) 50 mg PO ONCE ONE Stop: 06/20/18 15:11 Last Admin: 06/20/18 15:30 Dose: 50 mg Departure - Departure Disposition: [facility] Acute Clinical Impression: Dehydration Nausea & vomiting Qualifiers: Vomiting type: unspecified Vomiting Intractability: non-intractable Qualified Code(s): R11.2 - Nausea with vomiting, unspecified Contusion of left hip Qualifiers: Encounter type: initial encounter Qualified Code(s): S70.02XA - Contusion of left hip, initial encounter Condition: Good
[2018-06-20] MEDS ORDERED: NS 2,700 ML IV ONE (12:58)
[2018-06-20 13:26] LABS: INR 1.12 (0.83-1.16); PROTIME(PATIENT) 14.6 SEC (12.0-15.0)
[2018-06-20] MEDS ORDERED: traMADol 50 MG TAB PO ONE (15:10)
[2018-06-20] MEDS ORDERED: ACETAMINOPHEN 325 MG TAB PO PRN (16:46)
[2018-06-20] MEDS ORDERED: oxyCODONE IR 5 MG TAB PO PRN (16:46)
[2018-06-20] MEDS ORDERED: HYDROCODONE/APAP 5/325 TAB PO PRN (16:46)
[2018-06-20] MEDS ORDERED: ONDANSETRON 4 MG/2 ML VIAL IVP PRN (16:46)
[2018-06-20] MEDS ORDERED: PROMETHAZINE HCL 25 MG/ML INJ IVP PRN (16:46)
[2018-06-20] MEDS ORDERED: ONDANSETRON DISINTEGRATING 4 MG TAB PO PRN (16:46)
[2018-06-20] MEDS ORDERED: ALBUTEROL 3 ML DEYVIAL IH PRN (16:46)
[2018-06-20] MEDS ORDERED: NS 1,000 ML IV SCH (17:00)
[2018-06-20] MEDS ORDERED: TEARS/DEXTRAN 70/HYPROMELLOSE 15 ML OPHT.BTL EACHEYE PRN (17:29)
[2018-06-20] MEDS: SPIRONOLACTONE 25 MG TAB PO SCH (17:46)
[2018-06-20] MEDS: MONTELUKAST SODIUM 10 MG TAB PO SCH (17:47)
[2018-06-20] MEDS: traMADol 50 MG TAB PO SCH ×4 (17:49→21:54)
[2018-06-20] MEDS: CLOPIDOGREL BISULFATE 75 MG TAB PO SCH (17:52)
[2018-06-20] MEDS: ALPRAZolam 1 MG TAB PO SCH (17:53)
--- NOTE | 2018-06-20 18:26 | GHP ---
DATE OF ADMISSION: 06/20/2018 CHIEF COMPLAINT: Nausea and diarrhea. HISTORY: This is an 88-year-old female with multiple medical problems including history of lupus, hi story of stroke, chronic venous insufficiency, and peripheral neuropathy who was found this morning l mark on the floor next to her bed, unable to get up. The patient states that since last night follow ing dinner, she had nausea, vomiting, and diarrhea essentially all night long. She notes she had a n ormal dinner at the facility and does not think that anyone else got sick, but shortly after eating, became significantly ill herself. She denies loss of consciousness leading to her falling but states she felt that she was just too weak to walk. She continues to feel quite weak. She has had no diar douglas or vomiting since this morning, approximately 10 hours without persistent nausea or diarrhea. S he was complaining initially of right hip pain, which has since essentially resolved. She denies any other recent changes to her general state of health. PAST MEDICAL HISTORY: Includes: 1. SLE, on chronic prednisone. 2. History of stroke in 2003 without significant residual symptoms. 3. Chronic hypoxemic respiratory failure, on 3 L of oxygen at baseline. 4. Celiac disease. 5. History of Afib. 6. Peripheral neuropathy problem. 7. Arthritis. 8. Hypertension. 9. Asthma. 10. Chronic venous insufficiency. PAST SURGICAL HISTORY: Includes: 1. Partial hysterectomy. 2. Bladder surgery. 3. Parathyroid nodule removal. 4. Heart catheterization. FAMILY HISTORY: Both parents are . SOCIAL HISTORY: Patient currently resides at [facility]. She is . She has 4 children. She is a nonsmoker, nondrinker. MEDICATIONS: Include: 1. Tramadol. 2. Prednisone. 3. Topamax. 4. Temazepam. 5. Natural Tears. 6. Spironolactone. 7. Potassium chloride. 8. Pantoprazole. 9. Multivitamin. 10. Singulair. 11. Loperamide. 12. Plavix. 13. Cholecalciferol. 14. Calcium carbonate. 15. Tylenol. 16. Alprazolam. ALLERGIES: Include penicillin, aspirin, gabapentin, NSAIDs, Lasix and pregabalin. EXAM: VITAL SIGNS: BP 155/81, heart rate 84, respiratory rate 18, O2 sats 96% on 4 L, temperature i s 37.4. GENERAL APPEARANCE: This is an elderly female. She is awake and alert. She is in moderate distress. EYES: Anicteric. HENT: Dry mucous membranes. Oropharynx clear. CARDIOVASCULAR: Regu lar rate and rhythm, no MRG. PULMONARY: CTA bilaterally. Patient is breathing shallow and rapid, h owever. ABDOMEN: Soft, nontender, nondistended. Positive bowel sounds. EXTREMITIES: Patient has bilateral lower extremity trace edema without clubbing or cyanosis. SKIN: Bilateral lower extremity hyperpigmentation consistent with venous stasis. She has a couple of skin tears on her right arm th at are bandaged. NEURO/PSYCH: Oriented and appropriate. CLINICAL DATA: Labs reviewed and notable for white blood cell count of 11.98, hematocrit of 48. Sonia annemarie is unremarkable. UA is unremarkable. Head CT personally reviewed and interpreted and shows no acute findings. Chest x-ray shows possible bronchitis in the left basilar and left basilar atelectasis. Humerus x-ray shows no fracture. Hip x-ray likewise no fracture. ASSESSMENT AND PLAN: This is an 88-year-old female with a past medical history that includes lupus a nd stroke as well as chronic hypoxic respiratory failure presenting with nausea, vomiting, and diarrh ea along with a fall. 1. Nausea, vomiting, diarrhea. Again, this has been present for approximately 12 hours and seems to have largely resolved. Most likely represents a viral gastroenteritis. We will continue with conse rvative management for the time being. Should her diarrhea recur. We will check a GI pathogen panel , though she does not have significant risk factors for Clostridium difficile or other infectious GI processes. 2. Fall is likely secondary to weakness from dehydration related to above. We will have PT/OT work with her while in-house. She does have a history of recurrent falls, however, in the last couple of weeks raising concerns. Does have underlying peripheral neuropathy likely contributing to her gait i nstability. 3. Chronic hypoxic respiratory failure. This does seem to be at baseline. She does have comment of possible bronchitis noted on chest x-ray but is asymptomatic. We will provide p.r.n. breathing man tments. 4. History of lupus, on chronic prednisone. We will continue. 5. Leukocytosis is likely related to either stress response or volume depletion as she is also sligh tly polycythemic. We will repeat in the a.m. 6. Chronic venous insufficiency. This does appear to be at baseline. No evidence of superimposed c ellulitis. 7. Multiple skin tears. She is followed by the wound care clinic. They were not concerned for supe rinfection. We will have wound care follow while in-house. 8. Code status is Do Not Resuscitate. 9. Inpatient status. Suspect patient will require greater than 48-hour stay for evaluation and ananda chang of above given her multiple comorbidities and recurrent falls and being unsafe at home. /[id number]/MODL
[2018-06-20] MEDS ORDERED: TEMAZEPAM 15 MG CAP PO SCH (21:00)
[2018-06-20] MEDS: POTASSIUM CL 10 MEQ TAB PO SCH (21:53)
[2018-06-20] MEDS: TOPIRAMATE 25 MG TAB PO SCH (21:56)
[2018-06-20] MEDS: TOPIRAMATE 100 MG TAB PO SCH (21:56)
[2018-06-20] MEDS: IPRATROPIUM/ALBUTEROL 3 ML DEYVIAL IH SCH (23:25)
[2018-06-21 05:15] LABS: PLATELET COUNT 140 10^3/uL (150-400)
[2018-06-21] MEDS: IPRATROPIUM/ALBUTEROL 3 ML DEYVIAL IH SCH ×3 (05:30→14:44)
[2018-06-21] MEDS: ENOXAPARIN 40 MG/0.4 ML SYR SC SCH (09:19)
[2018-06-21] MEDS: SPIRONOLACTONE 25 MG TAB PO SCH ×2 (09:19→17:31)
[2018-06-21] MEDS: predniSONE 5 MG TAB PO SCH (09:20)
[2018-06-21] MEDS: CALCIUM CARBONATE 500 MG TAB PO SCH (09:20)
[2018-06-21] MEDS: POTASSIUM CL 10 MEQ TAB PO SCH ×3 (09:20→21:41)
[2018-06-21] MEDS: CHOLECALCIFEROL VIT D3 1,000 UNITS TAB PO SCH (09:20)
[2018-06-21] MEDS: PANTOPRAZOLE SODIUM 40 MG TAB PO SCH (09:20)
[2018-06-21] MEDS: MULTIVITAMINS 1 EACH TAB PO SCH (09:20)
[2018-06-21] MEDS: ALPRAZolam 1 MG TAB PO SCH (09:49)
--- NOTE | 2018-06-21 10:05 | PDMN ---
Medical Necessity Medical necessity: [facility] gastroenteritis: 88 yo w/ N/V/D most likely r/t viral gastroenteritis, fall likely secondary weakness from dehydration, PT/OT eval ordered and pending, multi skin tears, wound care to follow. elevated WBC noted, BC pending. Cont IV fluids. IP status as suspect pt will require >48hr stay for eval and management of the above given her multi comorbidities, recurrent fall and being unsafe at home. Hx lupus, stroke 04, chronic hypoxemic resp fx, celiac disease, afib, periph neuropathy, arthritis, HTN, asthma, chronic venous insufficiency
--- NOTE | 2018-06-21 10:35 | ASMTCASEMG ---
Living Arrangements What is your living Answers: Alone arrangement? Who do you live with? Type Of Residence What kind of residence do Answers: Apartment you live in? Discharge Plan Comments Coordination Status Comments Notes: Patient is an 88yo female who has a hx of lupus, stroke, and chronic hypoxic respiratory failure who was admitted for nausea, vomiting, and diarrhea along with a fall. OT/PT have been ordered. Patient currently resides at [facility] and has 4 children. D/C plan TBD. CM will follow. Date Signed: 06/21/2018 10:33 AM Electronically Signed By:Bessie Lara LCSW
[2018-06-21] MEDS ORDERED: ALPRAZolam 0.5 MG TAB PO PRN (13:16)
[2018-06-21] MEDS: DOXYCYCLINE HYCLATE 100 MG CAP/TAB PO SCH ×2 (13:44→21:41)
--- NOTE | 2018-06-21 14:12 | HOSPPROG ---
Hospitalist Progress Note Assessment/Plan: #Diarrhea: suspect viral. Trying to obtain sample for PCR. U, CXR, resp PCR negative #Fever: may be viral. Has some e/o leg cellulitis L>R and over left foot. Doxycycline, areas outlined. PCN-allergy #SLE: pred #Chronic immunosuppression: calcium #Fall: multifactorial with dehydration, neuropathy, meds. PT/OT. Spoke with pt and daughters about BZs and risks of falls; stop Temazepam #Insomnia: stop Temazepam #Neuropathy: Topamax #h/o CVA: Plavix #Chronic hypoxemic resp failure:stable #RUE skin tears: followed in wound clinic outpatient #Diet: regular Disp: inpt admission for GI studies, PT/OT. Subjective: still having diarrhea Objective: Vital Signs Temp Pulse Resp BP Pulse Ox 36.7 C 86 18 135/62 H 98 06/21/18 11:28 06/21/18 11:28 06/21/18 11:28 06/21/18 11:28 06/21/18 11:28 Microbiology 06/21/18 09:52 Respiratory Panel (PCR) - Final Nasal, Sinus - Swab No Organism Detected Laboratory Results 06/21/18 04:32 06/21/18 04:32 06/20/18 06/21/18 06/22/18 05:59 05:59 05:59 Intake Total 2700 Output Total 500 Balance 2200 PT 14.6 SEC (12.0-15.0) 06/20/18 12:00 INR 1.12 (0.83-1.16) 06/20/18 12:00 - Time Spent With Patient Time Spent with Patient: greater than 35 minutes Time Spent with Patient: Greater than 35 minutes spent on this patients care, greater than 50% of time spent counseling, educating, and coordinating care regarding the above mentioned plan. - Physical Exam Constitutional: no apparent distress Eyes: PERRL Ears, Nose, Mouth, Throat: moist mucous membranes Cardiovascular: regular rate and rhythym Respiratory: no respiratory distress Gastrointestinal: normoactive bowel sounds, soft, non-tender abdomen, No tenderness Genitourinary: no bladder fullness, No fierro in urethra Skin: warm, other (lower legs with erythema, warm to touch. Area of redness over left forefoot. RUE skin tears dressed) Neurologic: AAOx3, CN II-XII Intact Psychiatric: interacting appropriately ICD10 Worksheet Patient Problems: Problems Problem Status Onset Contusion of left hip Acute Dehydration Acute Nausea & vomiting Acute Cervical pain (neck) Acute Fall Acute GI bleeding Acute Hypokalemia Acute Junctional bradycardia Acute MRSA (methicillin resistant Staphylococcus aureus) Acute ~06/16/17 Syncope Acute
[2018-06-21] MEDS ORDERED: IPRATROPIUM/ALBUTEROL 3 ML DEYVIAL IH PRN (15:18)
[2018-06-21] MEDS: CLOPIDOGREL BISULFATE 75 MG TAB PO SCH (17:31)
[2018-06-21] MEDS: MONTELUKAST SODIUM 10 MG TAB PO SCH (17:32)
[2018-06-21] MEDS ORDERED: MELATONIN 3 MG TAB PO SCH (21:00)
[2018-06-21] MEDS: TOPIRAMATE 25 MG TAB PO SCH (21:41)
[2018-06-21] MEDS: TOPIRAMATE 100 MG TAB PO SCH (21:41)
[2018-06-21] MEDS ORDERED: traMADol 50 MG TAB PO ONE (22:38)
[2018-06-22] MEDS: SPIRONOLACTONE 25 MG TAB PO SCH (08:03)
[2018-06-22] MEDS: DOXYCYCLINE HYCLATE 100 MG CAP/TAB PO SCH (08:03)
[2018-06-22] MEDS: predniSONE 5 MG TAB PO SCH (08:03)
[2018-06-22] MEDS: CALCIUM CARBONATE 500 MG TAB PO SCH (08:04)
[2018-06-22] MEDS: PANTOPRAZOLE SODIUM 40 MG TAB PO SCH (08:04)
[2018-06-22] MEDS: ENOXAPARIN 40 MG/0.4 ML SYR SC SCH (08:04)
[2018-06-22] MEDS: CHOLECALCIFEROL VIT D3 1,000 UNITS TAB PO SCH (08:04)
[2018-06-22] MEDS: MULTIVITAMINS 1 EACH TAB PO SCH (08:04)
[2018-06-22] MEDS: POTASSIUM CL 10 MEQ TAB PO SCH (08:04)
[2018-06-22] MEDS ORDERED: traMADol 50 MG TAB PO PRN (10:42)
[2018-06-22] MEDS ORDERED: NS 1,000 ML IV SCH (10:45)
[2018-06-22] MEDS ORDERED: LOPERAMIDE HCL 1 MG/5 ML UDL PO PRN (10:46)
[2018-06-22 11:59] VITALS: BP 157/90
--- NOTE | 2018-06-22 13:38 | ASMTCMCOM ---
CM Note CM Note Notes: Spoke w/pt and her two daughters, re; dc poc. Pt lives at [facility] but will initially dc to dtr Starla's home. They would like her to get homecare there. They have no preference for home care agencies. DC Plan: Home care Date Signed: 06/22/2018 01:37 PM Electronically Signed By:Cris Arias RN
--- NOTE | 2018-06-22 14:56 | PDIAF ---
- Diagnosis Diagnosis: norovirus Code Status: Do Not Resuscitate - Medication Management Discharge Medications: Medications to Continue on Transfer ALPRAZolam [Xanax 0.5 MG (*)] 0.5 mg PO BID@,1730 07/23/14 [Last Taken 17:30] Clopidogrel Bisulfate [Plavix (*)] 75 mg PO DAILY@1730 07/23/14 [Last Taken ] Montelukast Sodium [Singulair 10 mg (*)] 10 mg PO DAILY@1800 07/23/14 [Last Taken 06/19/18] Tears/Hypromellose [Natural Balance] 1 - 2 drops EACHEYE QID PRN 07/23/14 [Last Taken Unknown] traMADol [Ultram 50 mg (*)] 50 mg PO DAILY@12 07/23/14 [Last Taken 06/19/18] traMADol [Ultram 50 mg (*)] 100 mg PO BID@1730,2230 07/23/14 [Last Taken 22:30] Loperamide HCl [Imodium 2 mg (*)] 8 mg PO DAILY 11/04/15 [Last Taken 06/19/18] Multivitamins [Multivitamin (*)] 1 each PO DAILY 11/04/15 [Last Taken 06/19/18] predniSONE 5 mg PO DAILY 11/04/15 [Last Taken 06/19/18] Acetaminophen [Tylenol ES 500 mg (*)] 1,000 mg PO DAILY PRN 11/16/17 [Last Taken 11/16/17 13:00] Calcium Carbonate [Calcium] 500 mg PO DAILY 11/16/17 [Last Taken 06/19/18] Cholecalciferol Vit D3 [Vitamin D3 (*)] 1,000 units PO DAILY 11/16/17 [Last Taken 06/19/18] Potassium Chloride [Klor-Con 10] 10 meq PO TID 11/16/17 [Last Taken 06/19/18 21: 00] Spironolactone [Aldactone 25 MG (*)] 25 mg PO BID@09,1730 11/16/17 [Last Taken 06/19/18 17:30] Topiramate [Topamax] 125 mg PO HS 03/04/18 [Last Taken 06/19/18] Pantoprazole Sodium [Protonix 40mg (*)] 40 mg PO DAILY 03/05/18 [Last Taken ] Doxycycline Hyclate 100 mg PO BID #8 tablet 06/22/18 [Last Taken Unknown] Melatonin [Melatonin 3 MG (*)] 3 mg PO HS tab 06/22/18 [Last Taken Unknown] Discharge Medications: Refer to the Discharge Home Medication list for PRN reason. - Orders Services needed: Home Care, Registered Nurse, Physical Therapy Home Care Face to Face: I certify that this patient was under my care and that I had the required [id number] encounter meeting the encounter requirements on the discharge day. My findings support the fact that the patient is homebound as defined in Home Care Face to Face Continued: CMS Chapter 7 Medicare Benefits Manual 30.1.1 , The condition of the patient is such that there exists a normal inability to leave home and consequently, leaving home would require a considerable and taxing effort. Isolation Type: Contact Isolation, Droplet Isolation Diet Recommendation: no restrictions on diet Diet Texture: Regular Texture Diet Additional Instructions: Hold Spironolactone for the next several days while having diarrhea. Drink plenty of fluids. Wash hands with soap and water. - Follow Up Care Current Providers and Referrals: Clint Auguste MD [Primary Care Provider] - As per Instructions
--- NOTE | 2018-06-22 14:56 | GDS ---
DISCHARGE DIAGNOSES: 1. Norovirus. 2. Diarrhea. 3. Fever. 4. Bilateral lower extremity cellulitis, left greater than right. 5. Lupus, on chronic prednisone. 6. History of stroke in 2003. 7. Chronic hypoxemic respiratory failure, on 3 liters. 8. Celiac disease. 9. History of atrial fibrillation. 10. Peripheral neuropathy. 11. Arthritis. 12. Hypertension. 13. Asthma. 14. Chronic venous stasis. HISTORY OF PRESENT ILLNESS: An 88-year-old female with lupus, on chronic steroids; peripheral neurop athy, found on the floor unable to get up. The evening prior, she had nausea, vomiting, and diarrhea all night long. She does not endorse sick contacts. She denies loss of consciousness leading to he r fall, but just felt very weak. Per daughters, has chronic venous stasis changes of her legs that are intermittently red. HOSPITAL COURSE BY PROBLEM: 1. Fever, likely multifactorial with norovirus and bilateral leg cellulitis. 2. Norovirus: Supportive care with IV fluids. Supportive care. She needs to drink plenty of fluid s. Hold spironolactone to avoid dehydration. 3. Bilateral lower extremity cellulitis: Both legs are warm, left greater than right, also with the dorsum of the left foot. This area was outlined and has improved on doxycycline. We will continue for a total of 5 days. 4. Lupus: On chronic prednisone, calcium for prophylaxis. 5. Fall: This is likely multifactorial with dehydration, neuropathy, and medications. We will have PT, OT, and home care nurse at home. Discussed at length with the patient and her daughters about t emazepam at night, which increases her risk. I recommended to discontinue, and they agree. 6. Insomnia: Trial melatonin. 7. Neuropathy: Topamax. 8. History of CVA: Plavix. 9. Chronic hypoxemic respiratory failure: No evidence of pneumonia. 10. Right upper extremity skin tears: Continue to follow up in Wound Clinic. DISPOSITION: Patient is stable for discharge home with daughters. MEDICATIONS: 1. New: Doxycycline 100 mg b.i.d. for 4 more days. 2. Hold spironolactone for 2 days while having diarrhea. FOLLOWUP: Wound Care Clinic. Drink plenty of fluids. PHYSICAL EXAM: VITAL SIGNS: Temperature 36.4, blood pressure 157/90, heart rate in the 70s, respira tions 16, 96% on 3 L. GENERAL: Tired but well appearing, no acute distress. HEENT: PERRLA. Moist mucous membranes. CV: Regular rate and rhythm. LUNGS: Clear. ABDOMEN: Soft, nontender, nondiste nded. Positive bowel sounds. : No Schultz. MUSCULOSKELETAL: 5/5, upper and lower extremity stren gth. NEURO: 2 through 12 intact. Alert and oriented x3. Time spent on discharge: Greater than 45 minutes coordinating with case management, discussing treat ment plan, precautions at home with daughters. /[id number]/MODL
--- NOTE | 2018-06-22 15:24 | ASMTLACE ---
ERWINE Length of stay for Answers: 2 days current admission Acuity / Level of Answers: Yes Care: Did the patient have an inpatient admission? Comorbidities - select Answers: Cerebrovascular disease all that apply (CVA, TIA, aneurysms, vasc ular dementia) Opioid dependence / Chronic pain Other Notes: Hx of Lupus; HTN; AFib # of Emergency department Answers: 3-4 visits in the last 6 months Score: 14 Date Signed: 06/22/2018 03:13 PM Electronically Signed By:Cris Arias RN
--- NOTE | 2018-06-22 15:42 | ASMTDCNOTE ---
Case Management Discharge Discharge Order Complete? Answers: Yes Patient to Obtain Answers: via Family Medications Transportation Arranged Answers: Family/Friends Faxed Final Orders Answers: Yes Agency/Facility Transfer Answers: Yes Report Printed & Faxed to Receiving Agency Family Notified Answers: Yes Discharge Comments Notes: D/w MD, final orders faxed. Nara from [facility] here and met with pt and family. Date Signed: 06/22/2018 03:26 PM Electronically Signed By:Cris Arias RN
--- NOTE | 2018-06-23 15:17 | ASDISCHSUM ---
Discharge Information Plan Status:Home with Home Health Medically Cleared to Leave: Discharge Date:06/22/2018 04:06 PM CM D/C Disposition:Home Health Service ADT D/C Disposition:Home Health Service Projected Discharge Date:06/24/2018 11:00 AM Transportation at D/C:Family Discharge Delay Reason: Follow-Up Date:06/24/2018 11:00 AM Discharge Slot: Final Diagnosis: Placement Information Referral Type:*Home Health Care Services Referral ID:[id number] Provider Name:[facility] [place] Address 1:[address] [place] [address] Address 2: City:[place] Selection Factors: State:[place] Patient Contact Information Contact Name:ANTONIO Relationship:Daughter Address: Work Phone: City:[facility] Phone: State/Zip Code:[place] [address] Email: Financial Information Financial Class:Medicare Primary Plan Desc:MEDICARE INPATIENT Primary Plan Number:[id number] Secondary Plan Desc:[place] Secondary Plan Number:[id number] Assessment Information LACE LACE Length of stay for Answers: 2 days current admission Acuity / Level of Answers: Yes Care: Did the patient have an inpatient admission? Comorbidities - select Answers: Cerebrovascular disease all that apply (CVA, TIA, aneurysms, vasc ular dementia) Opioid dependence / Chronic pain Other Notes: Hx of Lupus; HTN; AFib # of Emergency department Answers: 3-4 visits in the last 6 months Score: 14 Date Signed: 06/22/2018 03:13 PM Electronically Signed By:Cris Arias RN [facility] Initial CM Assessment Living Arrangements What is your living Answers: Alone arrangement? Who do you live with? Type Of Residence What kind of residence do Answers: Apartment you live in? Discharge Plan Comments Coordination Status Comments Notes: Patient is an 88yo female who has a hx of lupus, stroke, and chronic hypoxic respiratory failure who was admitted for nausea, vomiting, and diarrhea along with a fall. OT/PT have been ordered. Patient currently resides at [facility] and has 4 children. D/C plan TBD. CM will follow. Date Signed: 06/21/2018 10:33 AM Electronically Signed By:Bessie Lara LCSW [facility] CM Progress Note CM Note CM Note Notes: Spoke w/pt and her two daughters, re; dc poc. Pt lives at [facility] but will initially dc to marina [facility]'s home. They would like her to get homecare there. They have no preference for home care agencies. DC Plan: Home care Date Signed: 06/22/2018 01:37 PM Electronically Signed By:Cris Arias RN Case Management Discharge Plan Note Case Management Discharge Discharge Order Complete? Answers: Yes Patient to Obtain Answers: via Family Medications Transportation Arranged Answers: Family/Friends Faxed Final Orders Answers: Yes Agency/Facility Transfer Answers: Yes Report Printed & Faxed to Receiving Agency Family Notified Answers: Yes Discharge Comments Notes: D/w MD, final orders faxed. Nara from [facility] here and met with pt and family. Date Signed: 06/22/2018 03:26 PM Electronically Signed By:Cris Arias RN Intervention Information
== END 2018-06-22 16:06 | disposition home health service (06) | DRG 392 ==
LOC: EDUNIT# → F3E 16:12
PROVIDERS: ADMIT Internal Medicine; ATTEND Internal Medicine
DX: A08.11 Acute gastroenteropathy due to Norwalk agent (principal); L03.116 Cellulitis of left lower limb; L03.115 Cellulitis of right lower limb; M32.9 Systemic lupus erythematosus, unspecified; J96.11 Chronic respiratory failure with hypoxia; I69.354 Hemiplegia and hemiparesis following cerebral infarction affecting left non-dominant side; K90.0 Celiac disease; E86.0 Dehydration; I48.91 Unspecified atrial fibrillation; G62.9 Polyneuropathy, unspecified; I10 Essential (primary) hypertension; J45.909 Unspecified asthma, uncomplicated; I87.2 Venous insufficiency (chronic) (peripheral); G47.00 Insomnia, unspecified; Z79.02 Long term (current) use of antithrombotics/antiplatelets; Z79.52 Long term (current) use of systemic steroids; Z66 Do not resuscitate
CPT/HCPCS: 97116-GP; 97162-GP; 97166-GO; 97530-GP; 97535-GO; G8978-GP-CL; G8979-GP-CJ; G8987-GO-CJ; G8988-GO-CI; J1650; J7512

== ENCOUNTER 2018-06-30 18:26 | Inpatient (IN) | payer OTHER, MEDICAID ==
--- NOTE | 2018-06-30 18:51 | EDPHY ---
H & P Time Seen by Provider: 06/30/18 18:43 HPI/ROS: Chief complaint. Syncope HPI. 80-year-old female here by EMS after having a syncopal episode. She got up to go to the bathroom and remembers walking into the bathroom and then she remembers waking up on the floor. She was unable to get up and had to call 911. Denies injury. She does not remember having headache or chest pain or shortness of breath or abdominal pain prior to the syncopal episode. She did have a syncopal episode in the past. Patient was admitted June 20 for dehydration, norovirus, leg cellulitis. Patient tells me no illness or fever now. ROS 10 systems were reviewed and negative with the exception of the elements mentioned in the history of present illness Past Medical/Surgical History: Past medical history is significant for lupus, hypertension, atrial fibrillation , CVA peripheral neuropathy, celiac disease, cataracts, hysterectomy, heart catheterization Social History: , nonsmoker, no alcohol Smoking Status: Never smoked Physical Exam: General Appearance: Alert well-developed female mild distress vital signs are stable with initial blood pressure 169/115 Eyes: Pupils equal and round no pallor or injection. ENT, Mouth: Mucous membranes are moist. Respiratory: There are no retractions, lungs are clear to auscultation. Cardiovascular: Regular rate and rhythm. Gastrointestinal: Abdomen is soft and nontender, no masses, bowel sounds normal. Neurological: Awake and alert, sensory and motor exams grossly normal. Skin: Warm and dry, no rashes. Mild erythema on the both anterior legs. Within the lines that were drawn about 10 days ago. Musculoskeletal: Neck is supple nontender. Extremities symmetrical, full range of motion. Psychiatric: Patient is oriented X 3, there is no agitation. Constitutional: Initial Vital Signs Temperature (C) 36.8 C 06/30/18 18:32 Heart Rate 78 06/30/18 18:32 Respiratory Rate 16 06/30/18 18:32 Blood Pressure 169/115 H 06/30/18 18:32 O2 Sat (%) 98 06/30/18 18:32 O2 Delivery Mode Room Air Allergies/Adverse Reactions: aspirin Allergy (Severe, Verified 06/08/18 19:03) Anaphylaxis gabapentin Allergy (Severe, Verified 06/08/18 19:03) facial + peripheral edema + swollen throat Penicillins Allergy (Severe, Verified 06/08/18 19:03) Anaphylaxis furosemide Allergy (Unknown, Verified 06/08/18 19:03) NSAIDS (Non-Steroidal Anti-Inflamma [NSAIDS (Non-Steroidal Anti-Inflammatory Drug)] Allergy (Unknown, Verified 06/08/18 19:03) Abdominal Pain pregabalin Allergy (Unknown, Verified 06/08/18 19:03) edema Home Medications: Medication Instructions Recorded ALPRAZolam [Xanax 0.5 MG (*)] 0.5 mg PO BID@,172907/23/14 Clopidogrel Bisulfate [Plavix (*)] 75 mg PO DAILY@17307/23/14 Montelukast Sodium [Singulair 10 10 mg PO DAILY@1800 07/23/14 mg (*)] Tears/Hypromellose [Natural 1 - 2 drops EACHEYE QID PRN 07/23/14 Balance] traMADol [Ultram 50 mg (*)] 50 mg PO DAILY@12 07/23/14 traMADol [Ultram 50 mg (*)] 100 mg PO BID@173,222907/23/14 Loperamide HCl [Imodium 2 mg (*)] 8 mg PO DAILY 11/04/15 Multivitamins [Multivitamin (*)] 1 each PO DAILY 11/04/15 predniSONE 5 mg PO DAILY 11/04/15 Acetaminophen [Tylenol ES 500 mg 1,000 mg PO DAILY PRN 11/16/17 (*)] Calcium Carbonate [Calcium] 500 mg PO DAILY 11/16/17 Cholecalciferol Vit D3 [Vitamin D3 1,000 units PO DAILY 11/16/17 (*)] Potassium Chloride [Klor-Con 10] 10 meq PO TID 11/16/17 Spironolactone [Aldactone 25 MG 25 mg PO BID@09,17311/16/17 (*)] Topiramate [Topamax] 125 mg PO HS 03/04/18 Pantoprazole Sodium [Protonix 40mg 40 mg PO DAILY 03/05/18 (*)] Doxycycline Hyclate 100 mg PO BID #8 tablet 06/22/18 Melatonin [Melatonin 3 MG (*)] 3 mg PO HS tab 06/22/18 Medical Decision Making - Diagnostics EKG Interpretation: EKG interpreted by me shows atrial fibrillation with normal axis. Right bundle branch block. Rate is 83 Procedures: IV normal saline, monitor ED Course/Re-evaluation: On re-evaluation at 8:10 p.m. Patient is stable. The patient and her children and I discussed lab an EKG results. We discussed treatment plan including recommendation for admission. They expressed understanding and agreement I consulted discussed case with Dr. Clancy, hospitalist, who agrees to the admission Differential Diagnosis: I considered trauma from her fall, arrhythmia, acute coronary syndrome, electrolyte abnormalities - Data Points Laboratory Results: Laboratory Results 06/30/18 19:05 06/30/18 19:05 06/30/18 06/30/18 06/30/18 19:45 19:05 19:05 WBC 6.90 10^3/uL 10^3/uL (3.80-9.50) RBC 4.43 10^6/uL 10^6/uL (4.18-5.33) Hgb 13.9 g/dL g/dL (12.6-16.3) Hct 42.6 % % (38.0-47.0) MCV 96.2 fL fL (81.5-99.8) MCH 31.4 pg pg (27.9-34.1) MCHC 32.6 g/dL g/dL (32.4-36.7) RDW 12.7 % % (11.5-15.2) Plt Count 171 10^3/uL 10^3/uL (150-400) MPV 12.1 fL H fL (8.7-11.7) Neut % (Auto) 75.5 % H % (39.3-74.2) Lymph % (Auto) 14.3 % L % (15.0-45.0) Peach % (Auto) 8.6 % % (4.5-13.0) Eos % (Auto) 0.9 % % (0.6-7.6) Baso % (Auto) 0.4 % % (0.3-1.7) Nucleat RBC Rel Count 0.0 % % (0.0-0.2) Absolute Neuts (auto) 5.21 10^3/uL 10^3/uL (1.70-6.50) Absolute Lymphs (auto) 0.99 10^3/uL L 10^3/uL (1.00-3.00) Absolute Monos (auto) 0.59 10^3/uL 10^3/uL (0.30-0.80) Absolute Eos (auto) 0.06 10^3/uL 10^3/uL (0.03-0.40) Absolute Basos (auto) 0.03 10^3/uL 10^3/uL (0.02-0.10) Absolute Nucleated RBC 0.00 10^3/uL 10^3/uL (0-0.01) Immature Gran % 0.3 % % (0.0-1.1) Immature Gran # 0.02 10^3/uL 10^3/uL (0.00-0.10) Sodium 136 mEq/L mEq/L (135-145) Potassium 4.2 mEq/L mEq/L (3.3-5.0) Chloride 104 mEq/L mEq/L (97-110) Carbon Dioxide 27 mEq/l mEq/l (22-31) Anion Gap 5 mEq/L L mEq/L (6-14) BUN 17 mg/dL mg/dL (7-23) Creatinine 0.9 mg/dL mg/dL (0.6-1.0) Estimated GFR 59 Glucose 99 mg/dL mg/dL (70-100) Calcium 9.6 mg/dL mg/dL (8.5-10.4) POC Troponin I 0.02 ng/mL ng/mL (0.00-0.08) Point of Care Test Results: Chemistry 06/30/18 19:45 POC Troponin I 0.02 ng/mL ng/mL (0.00-0.08) Departure - Departure Disposition: [facility] Inpatient Acute Clinical Impression: Syncope Qualifiers: Syncope type: unspecified Qualified Code(s): R55 - Syncope and collapse Condition: Fair Referrals: Clint Auguste MD [Primary Care Provider] - As per Instructions
--- NOTE | 2018-06-30 19:24 | CPEKG ---
Test Reason : OPEN Blood Pressure : / mmHG Vent. Rate : 083 BPM Atrial Rate : 126 BPM P-R Int : 126 ms QRS Dur : 137 ms QT Int : 416 ms P-R-T Axes : 000 054 -06 degrees QTc Int : 489 ms Sinus rhythm Supraventricular bigeminy Right bundle branch block Confirmed by Inocente Diallo ([id number]) on 06/30/2018 7:23:50 PM Referred By: Confirmed By:Inocente Diallo
[2018-06-30 19:44] LABS: PLATELET COUNT 171 10^3/uL (150-400)
[2018-06-30] MEDS ORDERED: ACETAMINOPHEN 325 MG TAB PO PRN (20:51)
[2018-06-30] MEDS ORDERED: ONDANSETRON DISINTEGRATING 4 MG TAB PO PRN (20:51)
[2018-06-30] MEDS ORDERED: ONDANSETRON 4 MG/2 ML VIAL IVP PRN (20:51)
[2018-06-30] MEDS ORDERED: traMADol 50 MG TAB PO ONE (20:57)
[2018-06-30] MEDS ORDERED: traMADol 50 MG TAB ONE (21:00)
[2018-06-30] MEDS ORDERED: NS 1,000 ML IV SCH (21:00)
[2018-06-30] MEDS ORDERED: TEARS/DEXTRAN 70/HYPROMELLOSE 15 ML OPHT.BTL EACHEYE PRN (21:19)
--- NOTE | 2018-06-30 22:16 | PDGENHP ---
History and Physical - Chief Complaint Acute syncope - History of Present Illness Primary care provider: Dr. Clint Auguste Primary medical coordinator pesticide use: Dr. Monet HPI: 88-year-old female presents with acute syncope characterized as complete loss of consciousness, with unclear head trauma, with onset of symptoms at 5:30 p.m. While the patient was ambulating from chair to bathroom. The patient reports that the symptoms occurred prior to her using the bathroom and she does not recall any precipitating dizziness or lightheadedness. She awoke on the floor and was unable to ambulate, resulting in her contacting 911. On my evaluation, the patient does report some associated pain located in her right posterior occiput but she denies any lingering neurologic symptoms. Prior to her fall, the patient had otherwise been having a routine day, which consists of fatigue and reduced mobility secondary to recent norovirus infection. Since her norovirus infection 1 week ago, the patient has had low energy and has been rehabilitating in her apartment at [facility]. Her diarrhea has subsequently improved, and she had 1 loose bowel movement on the morning of presentation. Her oral intake has otherwise been at baseline. She did take all of her home medications on the day of presentation. She does utilize a walker at baseline and has some right lower extremity paresis as residual symptom to a CVA in 2003. Of note, she did not utilize her [employer] device recorder prior to or after her event. History Information - Allergies/Home Medication List Allergies/Adverse Reactions: aspirin Allergy (Severe, Verified 06/30/18 20:23) Anaphylaxis gabapentin Allergy (Severe, Verified 06/30/18 20:23) facial + peripheral edema + swollen throat Penicillins Allergy (Severe, Verified 06/30/18 20:23) Anaphylaxis furosemide Allergy (Unknown, Verified 06/30/18 20:23) NSAIDS (Non-Steroidal Anti-Inflamma [NSAIDS (Non-Steroidal Anti-Inflammatory Drug)] Allergy (Unknown, Verified 06/30/18 20:23) Abdominal Pain pregabalin Allergy (Unknown, Verified 06/30/18 20:23) edema Home Medications: ALPRAZolam [Xanax 0.5 MG (*)] 0.5 mg PO BID@07/23/14 [Last Taken ] Clopidogrel Bisulfate [Plavix (*)] 75 mg PO DAILY@172907/23/14 [Last Taken 07/07] Montelukast Sodium [Singulair 10 mg (*)] 10 mg PO DAILY@1800 07/23/14 [Last Taken 06/29/18] Tears/Hypromellose [Natural Balance] 1 - 2 drops EACHEYE QID PRN 07/23/14 [Last Taken Unknown] traMADol [Ultram 50 mg (*)] 50 mg PO BID@1530,2230 07/23/14 [Last Taken 06/29/18 ] Loperamide HCl [Imodium 2 mg (*)] 8 mg PO DAILY PRN 11/04/15 [Last Taken ] Multivitamins [Multivitamin (*)] 1 each PO DAILY 11/04/15 [Last Taken 06/30/18] predniSONE 5 mg PO DAILY 11/04/15 [Last Taken 06/30/18] Acetaminophen [Tylenol ES 500 mg (*)] 1,000 mg PO BID@1730,2230 11/16/17 [Last Taken 06/29/18] Calcium Carbonate [Calcium] 500 mg PO DAILY 11/16/17 [Last Taken 06/30/18] Cholecalciferol Vit D3 [Vitamin D3 (*)] 1,000 units PO DAILY 11/16/17 [Last Taken 06/30/18] Potassium Chloride [Klor-Con 10] 10 meq PO TID 11/16/17 [Last Taken 06/30/18] Spironolactone [Aldactone 25 MG (*)] 25 mg PO BID@09,1730 11/16/17 [Last Taken 06/30/18] Topiramate [Topamax] 125 mg PO HS 03/04/18 [Last Taken 06/29/18] Pantoprazole Sodium [Protonix 40mg (*)] 40 mg PO DAILY 03/05/18 [Last Taken 08/07] I have personally reviewed and updated: family history, medical history, social history, surgical history - Past Medical History Additional medical history: SLE, PUD, CAD on Plavix, CVA with left-sided residual weakness, HTN, asthma, nocturnal hypoxia on O2 supplementation at HS, Ruiz's esophagus, previous history of AFib noted in chart currently sinus, venous insufficiency bilaterally lower extremities. Essential tremor. Pneumonia remotely. Osteoporosis, osteoarthritis, peripheral neuropathy, celiac disease, IBS diarrhea predominant, recently treated for bilateral lower extremity cellulitis, recently with norovirus, syncope summer with link recorder implanted - Surgical History Additional surgical history: Hysterectomy, bladder lift, cardiac cath, bilateral cataract extraction with lens replacement, parathyroid nodule resected. - Family History Additional family history: Mother and maternal aunts x2 with history of breast cancer. Father with SLE. Brother with history of colon cancer. - Social History Smoking Status: Never smoked Alcohol Use: None Drug Use: None Additional social history: Patient resides at [facility]. Patient has excellent support from her children. Cor-DNR/DNI Review of Systems Review of Systems: ROS: 10pt was reviewed & negative except for what was stated in HPI & below Cardiac: Reports: syncope Muscolosketal: Reports: other (Right headache) Physical Exam Physical Exam: Temp Pulse Resp BP Pulse Ox 36.6 C 66 16 152/77 H 96 06/30/18 21:31 06/30/18 21:31 06/30/18 21:31 06/30/18 21:31 06/30/18 21:31 Constitutional: no apparent distress, appears nourished, not in pain Eyes: PERRL, anicteric sclera, EOMI Ears, Nose, Mouth, Throat: moist mucous membranes, hearing normal, ears appear normal, no oral mucosal ulcers Cardiovascular: no murmur, rub, or gallop, irregularly irregular, edema (Trace bilateral lower extremity), No tachycardia Respiratory: no respiratory distress, no rales or rhonchi, clear to auscultation Gastrointestinal: normoactive bowel sounds, soft, non-tender abdomen, no palpable masses Skin: other (Blanchable, mildly erythematous bilateral anterior shins without any tenderness, no fluctuance, no oozing) Neurologic: AAOx3, weakness (Left lower extremity 4/5 motor strength, 5/5 right lower extremity), CN II-XII Intact (With the exception of weakness on head rotational movement and left shoulder cranial nerve 11), facial droop (Mild on left), No sensation intact bilaterally (Left lower extremity subjective paresthesia compared to right) Psychiatric: interacting appropriately, not anxious, not encephalopathic, thought process linear Lab Data & Imaging Review 06/30/18 19:05 06/30/18 19:05 WBC 6.90 10^3/uL (3.80-9.50) 06/30/18 19:05 RBC 4.43 10^6/uL (4.18-5.33) 06/30/18 19:05 Hgb 13.9 g/dL (12.6-16.3) 06/30/18 19:05 Hct 42.6 % (38.0-47.0) 06/30/18 19:05 MCV 96.2 fL (81.5-99.8) 06/30/18 19:05 MCH 31.4 pg (27.9-34.1) 06/30/18 19:05 MCHC 32.6 g/dL (32.4-36.7) 06/30/18 19:05 RDW 12.7 % (11.5-15.2) 06/30/18 19:05 Plt Count 171 10^3/uL (150-400) 06/30/18 19:05 MPV 12.1 fL (8.7-11.7) H 06/30/18 19:05 Neut % (Auto) 75.5 % (39.3-74.2) H 06/30/18 19:05 Lymph % (Auto) 14.3 % (15.0-45.0) L 06/30/18 19:05 Rutherford % (Auto) 8.6 % (4.5-13.0) 06/30/18 19:05 Eos % (Auto) 0.9 % (0.6-7.6) 06/30/18 19:05 Baso % (Auto) 0.4 % (0.3-1.7) 06/30/18 19:05 Nucleat RBC Rel Count 0.0 % (0.0-0.2) 06/30/18 19:05 Absolute Neuts (auto) 5.21 10^3/uL (1.70-6.50) 06/30/18 19:05 Absolute Lymphs (auto) 0.99 10^3/uL (1.00-3.00) L 06/30/18 19:05 Absolute Monos (auto) 0.59 10^3/uL (0.30-0.80) 06/30/18 19:05 Absolute Eos (auto) 0.06 10^3/uL (0.03-0.40) 06/30/18 19:05 Absolute Basos (auto) 0.03 10^3/uL (0.02-0.10) 06/30/18 19:05 Absolute Nucleated RBC 0.00 10^3/uL (0-0.01) 06/30/18 19:05 Immature Gran % 0.3 % (0.0-1.1) 06/30/18 19:05 Immature Gran # 0.02 10^3/uL (0.00-0.10) 06/30/18 19:05 Sodium 136 mEq/L (135-145) 06/30/18 19:05 Potassium 4.2 mEq/L (3.3-5.0) 06/30/18 19:05 Chloride 104 mEq/L (97-110) 06/30/18 19:05 Carbon Dioxide 27 mEq/l (22-31) 06/30/18 19:05 Anion Gap 5 mEq/L (6-14) L 06/30/18 19:05 BUN 17 mg/dL (7-23) 06/30/18 19:05 Creatinine 0.9 mg/dL (0.6-1.0) 06/30/18 19:05 Estimated GFR 59 06/30/18 19:05 Glucose 99 mg/dL (70-100) 06/30/18 19:05 Calcium 9.6 mg/dL (8.5-10.4) 06/30/18 19:05 POC Troponin I 0.02 ng/mL (0.00-0.08) 06/30/18 19:45 Troponin I 0.017 ng/mL (0.000-0.034) 06/30/18 19:05 Visualized and Interpreted EKG results: Yes EKG Interpretation: Positive for: other (Atrial fibrillation with right bundle branch block verses ventricular bigeminy) Assessment & Plan Assessment: 88-year-old female presents with acute, recurrent syncope Plan: 1. Syncope. Acute, new problem this provider, further workup indicated. Recurrent, reviewed outside records including 03/06/[address] Teresa Sher, recounts patient's most recent presentation for syncope, felt to be vasovagal, with normal echocardiogram, no abnormalities on telemetry , linq recorder implanted -I suspect the patient's syncope is either secondary to generalized weakness and deconditioning versus orthostatic, as this occurred prior to her using the bathroom and she does not otherwise appear to be infected or experiencing electrolyte abnormalities -that being said, the patient does have an underlying history of atrial fibrillation and she is currently in atrial fibrillation with a controlled rate -however, the patient has been contacted by [facility] on previous occasions to be told that she may have experienced "events"which were picked up by her length recorder remotely, and it is unclear whether any of these events could have been the trigger for her syncope -discussed with Dr. Devan Elena, he reports that Cardiology will further investigate the linq recorder reading tomorrow a.m. -will continue to monitor on telemetry overnight -will cycle cardiac enzymes -will get head CT given that she is on Plavix and she has some headache, may have struck her head during her episode 2. Atrial fibrillation. Continue home medications, patient believe she is on Coumadin but medication reconciliation indicates she is on Plavix -will check INR tomorrow morning to ensure the patient is not surreptitiously taking Coumadin at home from a previous prescription 3. Hypertension. Chronic, continue patient's home medications 4. Chronic venous stasis dermatitis. Present on her bilateral shins, I do not believe that these are indicative of cellulitis, as her white blood cell count is normal, she just finished 1 week of doxycycline -repeat white blood cell count in a.m. 5. Essential tremor. Chronic, get physical and occupational therapy assessments tomorrow a.m. To ensure she is not too deconditioned to go home Diet. Regular Prophylaxis. High risk patient, Lovenox 40 in a.m. If INR is normal Code. Do not resuscitate per patient, her daughter Starla is MD DRAKE Disposition. Anticipated discharge is 07/01, pending further evaluation of above.
[2018-06-30] MEDS: POTASSIUM CL 10 MEQ TAB PO SCH (23:08)
[2018-06-30] MEDS: ACETAMINOPHEN 500 MG TAB PO SCH (23:08)
[2018-06-30] MEDS: TOPIRAMATE 100 MG TAB PO SCH (23:08)
[2018-06-30] MEDS: TOPIRAMATE 25 MG TAB PO SCH (23:08)
[2018-07-01] MEDS ORDERED: ALPRAZolam 0.5 MG TAB PO ONE ×2 (01:15→15:00)
[2018-07-01 04:50] LABS: INR 1.12 (0.83-1.16); PROTIME(PATIENT) 14.6 SEC (12.0-15.0)
[2018-07-01] MEDS ORDERED: MAGNESIUM SULF 2 GM/WATER 50 ML IV ONE (06:18)
[2018-07-01] MEDS ORDERED: traMADol 50 MG TAB PO ONE (06:33)
[2018-07-01] MEDS: LOPERAMIDE HCL 2 MG CAP PO PRN (07:43)
[2018-07-01] MEDS: ENOXAPARIN 40 MG/0.4 ML SYR SC SCH (09:00)
[2018-07-01] MEDS ORDERED: ENOXAPARIN 40 MG/0.4 ML SYR SC SCH (09:00)
[2018-07-01] MEDS ORDERED: ENOXAPARIN 30 MG/0.3 ML SYR SC SCH (09:00)
[2018-07-01] MEDS: CHOLECALCIFEROL VIT D3 1,000 UNITS TAB PO SCH (09:00)
[2018-07-01] MEDS: predniSONE 5 MG TAB PO SCH (09:01)
[2018-07-01] MEDS: PANTOPRAZOLE SODIUM 40 MG TAB PO SCH (09:01)
[2018-07-01] MEDS: MULTIVITAMINS 1 EACH TAB PO SCH (09:01)
[2018-07-01] MEDS: CALCIUM CARBONATE 500 MG TAB PO SCH (09:01)
[2018-07-01] MEDS: POTASSIUM CL 10 MEQ TAB PO SCH ×3 (09:01→20:38)
[2018-07-01] MEDS: ALPRAZolam 0.5 MG TAB PO SCH ×2 (09:01→22:24)
[2018-07-01] MEDS: SPIRONOLACTONE 25 MG TAB PO SCH ×2 (09:01→17:38)
--- NOTE | 2018-07-01 10:15 | HOSPPROG ---
Hospitalist Progress Note Assessment/Plan: Syncope - possibly orthostatic given recent norovirus infection, though orthostatic negative here. Could be neurogenic/reflex syncope. Concern for CVA exists with CT showing possible subacute stroke compared to CT 10 days prior. Discussed LINQ recording with cards; no e/o A fib, tachy or bradyarrhythmias, just PAC's, which is what I found on telemetry review. Echo from 02/2018 reviewed: nl LV function, moderate MR -cont telemetry monitoring -check d dimer and if elevated, r/o PE with CTA -MRI today H/O CVA - carotid us showed moderate calcified plaque in right carotid with 65- 75% stenosis, could be source of recurrent CVA -Cont plavix, statin -MRI today -neurology consult in am Chronic venous stasis with neuropathy - intolerant of Gabapentin -tramadol for pain -elevate legs -PT/OT Essential tremor DNR Dispo - change to inpt for ongoing syncope w/u, possible stroke Subjective: Pt feels ok this am. No dizziness, sanderson, vision changes, speech difficulty or focal weakness. Daughters at bedside and note pt has been more confused recently. Objective: Vital Signs Temp Pulse Resp BP Pulse Ox 36.6 C 73 20 154/79 H 93 07/01/18 07:55 07/01/18 07:55 07/01/18 07:55 07/01/18 07:55 07/01/18 07:55 Laboratory Results 07/01/18 03:15 06/30/18 07/01/18 07/02/18 05:59 05:59 05:59 Intake Total 650 50 Output Total 300 200 Balance 350 -150 PT 14.6 SEC (12.0-15.0) 07/01/18 03:15 INR 1.12 (0.83-1.16) 07/01/18 03:15 - Physical Exam Constitutional: no apparent distress Eyes: PERRL Ears, Nose, Mouth, Throat: moist mucous membranes Cardiovascular: regular rate and rhythym Respiratory: no respiratory distress, clear to auscultation Gastrointestinal: normoactive bowel sounds, soft, non-tender abdomen Skin: warm Musculoskeletal: other (b/l LE chronic venous stasis changes) Neurologic: AAOx3 Psychiatric: interacting appropriately ICD10 Worksheet Patient Problems: Problems Problem Status Onset Syncope Acute Cervical pain (neck) Acute Contusion of left hip Acute Dehydration Acute Fall Acute GI bleeding Acute Hypokalemia Acute Junctional bradycardia Acute MRSA (methicillin resistant Staphylococcus aureus) Acute ~06/16/17 Nausea & vomiting Acute
--- NOTE | 2018-07-01 11:37 | ASMTCMCOM ---
CM Note CM Note Notes: Pt is a 88 y/o female admitted for syncope and a possible stroke. Pt lives at [facility]. Neurology have been consulted. Therapies have been ordered and awaiting recommendations. Needs are TBD at this time. CM to follow. Plan: TBD Date Signed: 07/01/2018 11:36 AM Electronically Signed By:ANNE MRAIE Thibodeaux
[2018-07-01] MEDS ORDERED: LORazepam 0.5 MG TAB PO ONE ×2 (12:26→15:00)
--- NOTE | 2018-07-01 15:17 | PDMN ---
Medical Necessity Medical necessity: Change to IP, as of 07/01/18, per MD & MCG M-[id number]; los >2 mn for ongoing management of syncope r/t possible stroke; requiring further workup/ monitoring, Neuro consult & therapies; comorbid advanced age, CAD on AC, CVA w/L -sided residual weakness, chronic venous stasis w/neuropathy, essential tremor
[2018-07-01] MEDS: traMADol 50 MG TAB PO SCH ×2 (16:12→20:38)
[2018-07-01] MEDS: MONTELUKAST SODIUM 10 MG TAB PO SCH (17:38)
[2018-07-01] MEDS: ACETAMINOPHEN 500 MG TAB PO SCH ×2 (17:38→22:24)
[2018-07-01] MEDS: CLOPIDOGREL BISULFATE 75 MG TAB PO SCH (17:38)
[2018-07-01] MEDS: TOPIRAMATE 25 MG TAB PO SCH (20:38)
[2018-07-01] MEDS: TOPIRAMATE 100 MG TAB PO SCH (20:38)
[2018-07-01] MEDS: MELATONIN 3 MG TAB PO SCH (20:38)
[2018-07-02] MEDS: LOPERAMIDE HCL 2 MG CAP PO PRN (08:15)
[2018-07-02] MEDS: PANTOPRAZOLE SODIUM 40 MG TAB PO SCH (08:15)
[2018-07-02] MEDS: CHOLECALCIFEROL VIT D3 1,000 UNITS TAB PO SCH (09:06)
[2018-07-02] MEDS: MULTIVITAMINS 1 EACH TAB PO SCH (09:06)
[2018-07-02] MEDS: CALCIUM CARBONATE 500 MG TAB PO SCH (09:06)
[2018-07-02] MEDS: ALPRAZolam 0.5 MG TAB PO SCH ×2 (09:06→17:13)
[2018-07-02] MEDS: POTASSIUM CL 10 MEQ TAB PO SCH ×3 (09:06→22:05)
[2018-07-02] MEDS: ENOXAPARIN 40 MG/0.4 ML SYR SC SCH (09:06)
[2018-07-02] MEDS: SPIRONOLACTONE 25 MG TAB PO SCH ×2 (09:06→17:13)
[2018-07-02] MEDS: predniSONE 5 MG TAB PO SCH (09:06)
--- NOTE | 2018-07-02 10:31 | NEUROPROG ---
Assessment: [id number] - Neurology Consult: - CC: Dr. Estes consulted neurology for possible stroke. Results placed in EMR for her review. - HPI: Pt admitted to [facility] on 06/30/18 for syncope that occurred while moving from chair to bathroom. No problems prior to passing out. She had a recent norovirus infection 1 week prior to 06/30/18 and this has resulted in fatigue and low energy. She had a CVA in 2003 and has residual right leg weakness. She also has a LINQ monitor in place. Cardiology reported to have evaluated LINQ monitor and found no concerning rhythms that would have caused syncope and no afib. Carotid U/S showed right sided carotid stenosis 65%-75%. Head CT showed possible new stroke so neurology consulted and brain MRI ordered. I initially saw the patient on 07/02/18. Brain MRI showed no acute stroke. Her neurologic exam was normal except for her known essential tremor. I felt she likely had vasovagal syncope. I recommended routine otpt f/u with Dr. Benedict Mercado to monitor asymptomatic right carotid stenosis and consider CEA. 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, SLE, PUD, CAD on plavix, HTN, asthma, nocturnal hypoxia, Barretts esophagus, previous hx of afib, venous insuff in legs, essential tremor, PNA, osteoporosis, OA, peripheral neuropathy, celiac disease, IBS, cellulitis, syncope summer 2017 with link recorder implanted - PSHx: hysterectomy, bladder lift, cardiac cath, b/l cataracts, parathyroid nodule resected - SHx: lives in [facility], no tobacco FHx: BRCA, SLE, colon CA - ROS: Pt denied acute fever, total vision loss, active severe chest pain, respiratory failure, total body severe rash, total bowel/bladder incontinence, psychosis, active seizures, or active bleeding - O: VS reviewed General: Alert Eyes: Fundoscopic exam not able to visualize optic disks CV: Heart RRR, no murmur, no carotid bruit Lungs: Clear to auscultation bilaterally, no rhonchi or rales Neuro: - Mental: . Oriented x person/place/date . concentration appears normal . speech fluency/comprehension normal . memory appears normal . fund of knowledge appear intact - Cranial Nerves: . II: PERRL, VFFTC . III/IV/: EOMI, no nystagmus, normal smooth pursuits, no Ptosis . V: facial sensation intact to LT . VII: face symmetric to eye closure and smile . VIII: hearing intact to conversation . IX/X: uvula raises symmetrically . XI: SCM 5/5 B/L strength . XII: tongue protrudes midline w/nl strength - Motor: . Tone: normal tone in all 4 extremity, action tremor noted in hands and head . Strength: no pronator drift, strength 5/5 throughout (B/L delt, bic, tri, hand last waxer, hf/he, df/pf) - Reflexes: B/L bic/BR/patella 2/4 - Sensory: all 4 extremity intact to light touch - Coord: [id number] wnl, YOJANA wnl, [id number] wnl - Gait: deferred - Labs: 06/30/18- CBC wnl, INR 1.12, Chem anion gap 5L - Rads: 06/30/18- Head CT wo: Possible subacute right frontal infarct. No intracranial hemorrhage. (I personally visualized the images on 07/01/18) - 07/01/18- Carotid U/S: Moderate stenosis right carotid bulb to proximal ICA corresponding to about 65-75% stenosis secondary to moderate calcified plaque. Mild to moderate calcified plaque at the left carotid bulb to proximal ICA corresponding to less than 50% stenosis. Irregular heart rate - 07/01/18- Brain MRI wo: Mild periventricular and deep hemispheric white matter change, which is nonspecific and can be seen with small vessel ischemic disease. No evidence for acute infarct. - Assessment: 1. Syncope: Symptoms sound most consistent with vasovagal syncope (pt had to go to the bathroom, recent norovirus infection with fluid loss, negative cardiology evaluation). Brain MRI showed no stroke and neurologic exam normal on 07/02/18. She does have right carotid stenosis which may be increasing the odds of syncope but is likely unrelated. No further neurologic w/u needed. Neurology will sign off. - 2. History of afib: it was reported that LINQ monitor has not shown any afib - 3. Asymptomatic Right carotid stenosis 65-75%: Recommend routine outpatient referral to Benedict Mercado MD, to monitor and consider CEA if needed - 4. Prior stroke in 2004: Agree with plavix. Recommend lifelong control of blood pressure, blood glucose, and cholesterol. - Plan: - Agree with Plavix for stroke prevention (pt with history of stroke) - Given prior stroke, recommend working with outpatient PCM to ensure blood pressure < 140/90, H1AC < 7.0, and LDL < 70 - No further neurology w/u needed, neurology will sign off Objective: Vital Signs Temp Pulse Resp BP Pulse Ox 36.6 C 57 L 12 143/58 H 89 L 07/02/18 07:37 07/02/18 07:37 07/02/18 07:37 07/02/18 07:37 07/02/18 07:37 07/01/18 07/02/18 07/03/18 05:59 05:59 05:59 Intake Total 350 240 Output Total 325 250 Balance 25 -10 PT 14.6 SEC (12.0-15.0) 07/01/18 03:15 INR 1.12 (0.83-1.16) 07/01/18 03:15 Allergies/Adverse Reactions: aspirin Allergy (Severe, Verified 06/30/18 20:23) Anaphylaxis gabapentin Allergy (Severe, Verified 06/30/18 20:23) facial + peripheral edema + swollen throat Penicillins Allergy (Severe, Verified 06/30/18 20:23) Anaphylaxis furosemide Allergy (Unknown, Verified 06/30/18 20:23) NSAIDS (Non-Steroidal Anti-Inflamma [NSAIDS (Non-Steroidal Anti-Inflammatory Drug)] Allergy (Unknown, Verified 06/30/18 20:23) Abdominal Pain pregabalin Allergy (Unknown, Verified 06/30/18 20:23) edema
--- NOTE | 2018-07-02 12:03 | ASMTCMCOM ---
CM Note CM Note Notes: Pts case discussed in morning rounds. PT is recommending SNF. CM met w/ pt and daughter Violetta for dispo planning. They would like referrals made to [facility]. Referrals sent. Violetta reports that she will most likely be ther daughter to be visiting pt everyday. CM to follow. Plan: SNF Date Signed: 07/02/2018 12:02 PM Electronically Signed By:ANNE MARIE Thibodeaux
--- NOTE | 2018-07-02 12:40 | HOSPPROG ---
Hospitalist Progress Note Assessment/Plan: 88-year-old admitted with syncope. Likely vasovagal given recent norovirus infection, dehydration and orthostasis here. # syncope, likely orthostatic. Overall doing better but still quite weak and debilitated per physical therapy. Will need additional stay given her comorbidities and weakness. Currently working on skilled rehab. # carotid stenosis, 65-75%. Likely not currently contributing to her admitting symptoms however will need outpatient follow-up * Schedule follow-up with Dr. Mercado for evaluation and monitoring of her carotid stenosis # history of CVA continue Plavix and statin, MRI negative for acute stroke, appreciate Neurology consult # chronic venous stasis with neuropathy, intolerant of gabapentin. Quite weak and debilitated will need additional stay for ongoing therapies. # essential tremor # DNR Subjective: Patient new to me and chart reviewed feels better, still quite weak and difficulty caring for self currently. Still has some orthostatics symptoms although vital signs stable. Objective: Vital Signs Temp Pulse Resp BP Pulse Ox 36.7 C 74 14 172/87 H 91 L 07/02/18 11:36 07/02/18 11:36 07/02/18 11:36 07/02/18 11:36 07/02/18 11:36 07/01/18 07/02/18 07/03/18 05:59 05:59 05:59 Intake Total 350 240 Output Total 325 250 Balance 25 -10 PT 14.6 SEC (12.0-15.0) 07/01/18 03:15 INR 1.12 (0.83-1.16) 07/01/18 03:15 - Physical Exam Constitutional: no apparent distress Eyes: PERRL, EOMI Ears, Nose, Mouth, Throat: moist mucous membranes Cardiovascular: regular rate and rhythym Respiratory: no respiratory distress Gastrointestinal: soft, non-tender abdomen Skin: warm Musculoskeletal: generalized weakness Neurologic: No facial droop Psychiatric: interacting appropriately ICD10 Worksheet Patient Problems: Problems Problem Status Onset GI bleeding Acute Syncope Acute Junctional bradycardia Acute Nausea & vomiting Acute Dehydration Acute Contusion of left hip Acute MRSA (methicillin resistant Staphylococcus aureus) Acute ~06/16/17 Hypokalemia Acute Cervical pain (neck) Acute Fall Acute
[2018-07-02] MEDS: traMADol 50 MG TAB PO SCH ×2 (16:02→20:22)
[2018-07-02] MEDS: MONTELUKAST SODIUM 10 MG TAB PO SCH (17:13)
[2018-07-02] MEDS: CLOPIDOGREL BISULFATE 75 MG TAB PO SCH (17:13)
[2018-07-02] MEDS: ACETAMINOPHEN 500 MG TAB PO SCH ×2 (17:14→22:05)
[2018-07-02] MEDS: TOPIRAMATE 25 MG TAB PO SCH (20:22)
[2018-07-02] MEDS: TOPIRAMATE 100 MG TAB PO SCH (20:22)
[2018-07-02] MEDS: MELATONIN 3 MG TAB PO SCH (22:04)
[2018-07-03] MEDS: ENOXAPARIN 40 MG/0.4 ML SYR SC SCH (09:18)
[2018-07-03] MEDS: LOPERAMIDE HCL 2 MG CAP PO PRN (09:18)
[2018-07-03] MEDS: POTASSIUM CL 10 MEQ TAB PO SCH ×3 (09:19→22:05)
[2018-07-03] MEDS: PANTOPRAZOLE SODIUM 40 MG TAB PO SCH (09:19)
[2018-07-03] MEDS: ALPRAZolam 0.5 MG TAB PO SCH ×2 (09:19→16:30)
[2018-07-03] MEDS: SPIRONOLACTONE 25 MG TAB PO SCH ×2 (09:19→19:44)
[2018-07-03] MEDS: predniSONE 5 MG TAB PO SCH (09:19)
[2018-07-03] MEDS: MULTIVITAMINS 1 EACH TAB PO SCH (09:19)
[2018-07-03] MEDS: CHOLECALCIFEROL VIT D3 1,000 UNITS TAB PO SCH (09:19)
[2018-07-03] MEDS: CALCIUM CARBONATE 500 MG TAB PO SCH (09:19)
[2018-07-03] MEDS ORDERED: traZODone 50 MG TAB PO PRN (10:04)
--- NOTE | 2018-07-03 10:17 | HOSPPROG ---
Hospitalist Progress Note Assessment/Plan: Syncope - likely related to orthostasis in setting of recent norovirus infection. LINQ recording reviewed; no e/o A fib, tachy or bradyarrhythmias, just PAC's. Echo from 02/2018 reviewed: nl LV function, moderate MR. MRI neg for acute stroke. D dimer neg by age adjusted criteria. -cont telemetry monitoring -recheck orthostatics today- neg H/O CVA - carotid us showed moderate calcified plaque in right carotid with 65- 75% stenosis -Cont plavix, statin -outpt f/u with vascular surgery for carotid artery stenosis Chronic venous stasis with neuropathy - intolerant of Gabapentin -tramadol for pain -elevate legs -PT/OT Essential tremor - pt uses xanax, deferred request for increased dose today Insomnia - melatonin not helping much, recently taken off temazepam -trial trazodone Deconditioning - needs SNF DNR Dispo - cont inpt, likely dc to SNF in am if accepted Subjective: Pt feels better. Less dizzy, though still rather weak and unsteady. No fevers/chills. No headaches or vision changes. No CP or SOB. Objective: Vital Signs Temp Pulse Resp BP Pulse Ox 37.1 C 64 13 158/73 H 89 L 07/03/18 07:33 07/03/18 07:33 07/03/18 07:33 07/03/18 07:33 07/03/18 07:33 07/02/18 07/03/18 07/04/18 05:59 05:59 05:59 Intake Total 350 790 Output Total 325 1600 Balance 25 -810 PT 14.6 SEC (12.0-15.0) 07/01/18 03:15 INR 1.12 (0.83-1.16) 07/01/18 03:15 - Physical Exam Constitutional: no apparent distress Eyes: PERRL Ears, Nose, Mouth, Throat: moist mucous membranes Cardiovascular: regular rate and rhythym Respiratory: no respiratory distress Gastrointestinal: normoactive bowel sounds, soft, non-tender abdomen Skin: warm Musculoskeletal: generalized weakness Neurologic: AAOx3 Psychiatric: interacting appropriately ICD10 Worksheet Patient Problems: Problems Problem Status Onset Syncope Acute Cervical pain (neck) Acute Contusion of left hip Acute Dehydration Acute Fall Acute GI bleeding Acute Hypokalemia Acute Junctional bradycardia Acute MRSA (methicillin resistant Staphylococcus aureus) Acute ~06/16/17 Nausea & vomiting Acute
--- NOTE | 2018-07-03 15:43 | ASMTCMCOM ---
CM Note CM Note Notes: CM met with patient, informed patient and family [facility] has accepted the referral. The family would like facility transport. The patient has a question about living at [facility] and has [facility] Medicaid as coverage, CM encouraged patient/family to contact [facility] CM to inform them of treatment plan. The plan continues to discharge tomorrow. CM to follow. Plan: 07/07 discharge to [facility]. Date Signed: 07/03/2018 03:42 PM Electronically Signed By:Lisy Baker
[2018-07-03] MEDS: traMADol 50 MG TAB PO SCH ×2 (16:29→22:04)
[2018-07-03] MEDS: ACETAMINOPHEN 500 MG TAB PO SCH ×2 (16:30→22:04)
[2018-07-03] MEDS: MONTELUKAST SODIUM 10 MG TAB PO SCH (19:43)
[2018-07-03] MEDS: CLOPIDOGREL BISULFATE 75 MG TAB PO SCH (19:44)
[2018-07-03] MEDS: TOPIRAMATE 25 MG TAB PO SCH (22:05)
[2018-07-03] MEDS: TOPIRAMATE 100 MG TAB PO SCH (22:05)
[2018-07-03] MEDS: MELATONIN 3 MG TAB PO SCH (22:05)
[2018-07-04 07:25] VITALS: BP 124/70
--- NOTE | 2018-07-04 09:36 | PDIAF ---
- Diagnosis Diagnosis: Syncope Code Status: Do Not Resuscitate - Medication Management Discharge Medications: Medications to Continue on Transfer ALPRAZolam [Xanax 0.5 MG (*)] 0.5 mg PO BID@09,1730 07/23/14 [Last Taken ] Clopidogrel Bisulfate [Plavix (*)] 75 mg PO DAILY@1730 07/23/14 [Last Taken 07/07] Montelukast Sodium [Singulair 10 mg (*)] 10 mg PO DAILY@1800 07/23/14 [Last Taken 06/29/18] Tears/Hypromellose [Natural Balance] 1 - 2 drops EACHEYE QID PRN 07/23/14 [Last Taken Unknown] traMADol [Ultram 50 mg (*)] 50 mg PO BID@1530,0 07/23/14 [Last Taken 06/29/18 ] Loperamide HCl [Imodium 2 mg (*)] 8 mg PO DAILY PRN 11/04/15 [Last Taken ] Multivitamins [Multivitamin (*)] 1 each PO DAILY 11/04/15 [Last Taken 06/30/18] predniSONE 5 mg PO DAILY 11/04/15 [Last Taken 06/30/18] Acetaminophen [Tylenol ES 500 mg (*)] 1,000 mg PO BID@173,0 11/16/17 [Last Taken 06/29/18] Calcium Carbonate [Calcium] 500 mg PO DAILY 11/16/17 [Last Taken 06/30/18] Cholecalciferol Vit D3 [Vitamin D3 (*)] 1,000 units PO DAILY 11/16/17 [Last Taken 06/30/18] Potassium Chloride [Klor-Con 10] 10 meq PO TID 11/16/17 [Last Taken 06/30/18] Spironolactone [Aldactone 25 MG (*)] 25 mg PO BID@,0 11/16/17 [Last Taken 06/30/18] Pantoprazole Sodium [Protonix 40mg (*)] 40 mg PO DAILY 03/05/18 [Last Taken 08/07] Melatonin [Melatonin 3 MG (*)] 6 mg PO HS tab 07/04/18 [Last Taken Unknown] Topiramate [Topamax 100MG (*)] 100 mg PO HS #30 tab 07/04/18 [Last Taken Unknown ] Topiramate [Topamax 25MG (*)] 25 mg PO HS tab 07/04/18 [Last Taken Unknown] Discharge Medications: Refer to the Discharge Home Medication list for PRN reason. - Orders Services needed: Registered Nurse, Physical Therapy, Occupational Therapy Isolation Type: None - Follow Up Care Current Providers and Referrals: Clint Auguste MD [Primary Care Provider] - As per Instructions
--- NOTE | 2018-07-04 10:04 | GDS ---
DISCHARGE DIAGNOSES: 1. Orthostatic syncope. 2. History of cerebrovascular accident. 3. Chronic venous stasis with neuropathy. 4. Essential tremor. 5. Insomnia. 6. Deconditioning. 7. Chronic hypoxemic respiratory failure. Continue oxygen. HISTORY OF PRESENT ILLNESS: An 88-year-old female with history of essential tremor, CVA, recently hospitalized with norovirus. She initially went home with her daughters, but then has been back at her assisted living apartment at [facility]. She has had improved diarrhea. She passed out prior to using the bathroom. Does not recall any precipitating dizziness or lightheadedness, palpitations or chest pain. PROBLEMS: 1. Orthostatic hypotension, likely secondary to orthostasis. Cardiology discussed LINQ recording. There was no evidence of atrial fibrillation, tachycardia, or bradyarrhythmias, just PACs. Echocardiogram from 02/2018 with normal LV function, moderate MR. MRI showed no acute infarct. 2. History of CVA. Carotid ultrasound showed mild calcified plaque in the right carotid with 65-75 percent stenosis. Continue Plavix and statin. Needs followup with Vascular Surgery for possible further intervention. 3. Chronic venous stasis with neuropathy: Does not tolerate gabapentin. Continue Topamax. 4. Essential tremor: Home Xanax. 5. Insomnia: Recently taken off temazepam. Trazodone made her dizzy. Will discontinue. Did not trial melatonin for very long, so would recommend this, along with other sleep hygiene, including warm tea or milk at night. 6. Deconditioning: Will discharge to [facility]. DISPOSITION: Patient is stable to discharge to nursing facility. FOLLOWUP: Vascular Surgery for carotid stenosis. PHYSICAL EXAMINATION: VITAL SIGNS: Today, temperature 36.4, blood pressure 124 /70, heart rate is in the 60s, respirations 15, 94% on room air. GENERAL: She is sitting in bed, no acute distress, frail. HEENT: PERRLA. Moist mucous membranes. CV: Regular rate and rhythm. LUNGS: Clear. ABDOMEN: Soft, nontender. : No Schultz. MUSCULOSKELETAL: Moving all 4 extremities. NEUROLOGIC: 2 through 12 intact. PSYCH: Alert and oriented x3. /[id number]/MODL MTDD
[2018-07-04] MEDS: MULTIVITAMINS 1 EACH TAB PO SCH (10:05)
[2018-07-04] MEDS: ENOXAPARIN 40 MG/0.4 ML SYR SC SCH (10:05)
[2018-07-04] MEDS: POTASSIUM CL 10 MEQ TAB PO SCH (10:05)
[2018-07-04] MEDS: CHOLECALCIFEROL VIT D3 1,000 UNITS TAB PO SCH (10:06)
[2018-07-04] MEDS: predniSONE 5 MG TAB PO SCH (10:06)
[2018-07-04] MEDS: ALPRAZolam 0.5 MG TAB PO SCH (10:06)
[2018-07-04] MEDS: CALCIUM CARBONATE 500 MG TAB PO SCH (10:06)
[2018-07-04] MEDS: PANTOPRAZOLE SODIUM 40 MG TAB PO SCH (10:06)
[2018-07-04] MEDS: SPIRONOLACTONE 25 MG TAB PO SCH (10:06)
--- NOTE | 2018-07-04 10:38 | ASMTLACE ---
LACE Length of stay for Answers: 3 days current admission Acuity / Level of Answers: Yes Care: Did the patient have an inpatient admission? Comorbidities - select Answers: Cerebrovascular disease all that apply (CVA, TIA, aneurysms, vasc ular dementia) Coronary Artery Disease Opioid dependence / Chronic pain Other Notes: HTN; Lupus; AFib # of Emergency department Answers: 3-4 visits in the last 6 months Score: 17 Date Signed: 07/04/2018 10:37 AM Electronically Signed By:Lashonda Durán RN
--- NOTE | 2018-07-04 14:31 | ASMTDCNOTE ---
Case Management Discharge Discharge Order Complete? Answers: Yes Patient to Obtain Answers: Other Notes: [facility] Medications Transportation Arranged Answers: Other Notes: Clemencia from [facility] arranged wheelchair transport with [facility] will Pick (Date 07/04/2018 12:00 PM & Time) Faxed Final Orders Answers: Yes Agency/Facility Transfer Answers: Yes Report Printed & Faxed to Receiving Agency Discharge Comments Notes: 07/04/2018 Case Management Note Clemencia arranged transport. RN called report. Faxed final orders. Case Management d/c: [facility] Date Signed: 07/04/2018 02:30 PM Electronically Signed By:Lashonda Durán RN
--- NOTE | 2018-07-06 09:19 | ASDISCHSUM ---
Discharge Information Plan Status:SNF Medically Cleared to Leave:07/05/2018 Discharge Date:07/04/2018 01:04 PM D/C Disposition:Prison Facility ADT D/C Disposition:Prison Facility Projected Discharge Date:07/04/2018 11:00 AM Transportation at D/C:Wheelchair Van Discharge Delay Reason: Follow-Up Date:07/04/2018 11:00 AM Discharge Slot: Final Diagnosis: Placement Information Referral Type:*Retirement/SNF Referral ID:[id number] Provider Name:[facility] Address 1:[address] Address 2: City:[place] Selection Factors: State:[place] Patient Contact Information Contact Name:ANTONIO Relationship:Daughter Address: Work Phone: City:[facility] Phone: State/Zip Code:[place] [address] Email: Financial Information Financial Class:Medicare Primary Plan Desc:MEDICARE INPATIENT Primary Plan Number:[id number] Secondary Plan Desc:[place] Secondary Plan Number:[id number] Assessment Information LACE LACE Length of stay for Answers: 3 days current admission Acuity / Level of Answers: Yes Care: Did the patient have an inpatient admission? Comorbidities - select Answers: Cerebrovascular disease all that apply (CVA, TIA, aneurysms, vasc ular dementia) Coronary Artery Disease Opioid dependence / Chronic pain Other Notes: HTN; Lupus; AFib # of Emergency department Answers: 3-4 visits in the last 6 months Score: 17 Date Signed: 07/04/2018 10:37 AM Electronically Signed By:Lashonda Durán RN [facility] CM Progress Note CM Note CM Note Notes: Pt is a 88 y/o female admitted for syncope and a possible stroke. Pt lives at [facility]. Neurology have been consulted. Therapies have been ordered and awaiting recommendations. Needs are TBD at this time. CM to follow. Plan: TBD Date Signed: 07/01/2018 11:36 AM Electronically Signed By:ANNE MARIE Thibodeaux [facility] Progress Note CM Note CM Note Notes: Pts case discussed in morning rounds. PT is recommending SNF. CM met w/ pt and daughter Violetta for dispo planning. They would like referrals made to [facility] and [email or web address]. Referrals sent. Violetta reports that she will most likely be ther daughter to be visiting pt everyday. CM to follow. Plan: SNF Date Signed: 07/02/2018 12:02 PM Electronically Signed By:ANNE MARIE Thibodeaux [facility] ANTHONY Progress Note CM Note CM Note Notes: CM met with patient, informed [facility] The family would like facility transport. The patient has a question about living at [facility] and has [facility] Medicaid as coverage, CM encouraged patient/family to contact [facility] CM to inform them of treatment plan. The plan continues to discharge tomorrow. CM to follow. Plan: 07/07 discharge to [facility]. Date Signed: 07/03/2018 03:42 PM Electronically Signed By:Lisy J Pless Case Management Discharge Plan Note Case Management Discharge Discharge Order Complete? Answers: Yes Patient to Obtain Answers: Other Notes: [facility] Medications Transportation Arranged Answers: Other Notes: Clemencia from [facility] arranged wheelchair transport with [facility] will Pick (Date 07/04/2018 12:00 PM & Time) Faxed Final Orders Answers: Yes Agency/Facility Transfer Answers: Yes Report Printed & Faxed to Receiving Agency Discharge Comments Notes: 07/04/2018 Case Management Note Clemencia arranged transport. RN called report. Faxed final orders. [facility] Date Signed: 07/04/2018 02:30 PM Electronically Signed By:Lashonda Durán RN Intervention Information Intervention Type:*HUANG-Signed Date of Service:07/01/2018 09:30 AM Patient Type:Observation Staff Member:Aggie Rea Hours: Discipline: Severity: Comment: Intervention Type:*IM-Signed Date of Service:07/04/2018 11:23 AM Patient Type:Inpatient Staff Member:Aggie Rea Hours: Discipline: Severity: Comment:
== END 2018-07-04 13:04 | DRG 312 ==
LOC: EDUNIT# → F2W 21:12 → OBSVTOIN 07-01 14:37
PROVIDERS: ADMIT Internal Medicine; ATTEND Internal Medicine
DX: I95.1 Orthostatic hypotension (principal); J96.11 Chronic respiratory failure with hypoxia; R25.1 Tremor, unspecified; I83.10 Varicose veins of unspecified lower extremity with inflammation; G62.89 Other specified polyneuropathies; G47.00 Insomnia, unspecified; I10 Essential (primary) hypertension; M32.9 Systemic lupus erythematosus, unspecified; I48.91 Unspecified atrial fibrillation; Z86.73 Personal history of transient ischemic attack (TIA), and cerebral infarction without residual deficits; Z66 Do not resuscitate
CPT/HCPCS: 84484-PO; 92523-GN; 97116-GP; 97161-GP; 97165-GO; 97530-GP; 97535-GO; G0378; G8978-GP-CJ; G8979-GP-CI; G8987-GO-CJ; G8988-GO-CI; G9165-GN-CH; G9166-GN-CH; J1650; J2405; J3475; J7512